=== PATIENT | male | born 1965 | race Caucasian/White ===

== ENCOUNTER 2016-10-22 17:01 | Inpatient (IN) | payer OTHER ==
[~2016-10-22] VITALS: Ht 182.9 cm; Wt 95.9 kg
--- NOTE | 2016-10-22 17:16 | NUR ---
RECEIVED 50 YO MALE WITH HX OF OCD, PT REPORTS HE IS HAVING THOUGHTS OF S.I. PT REPORTS HE IS AT THE POINT WHERE HE IS THINKING OF MAKING PLANS JUST IN CASE IT GETS REAL BAD.
--- NOTE | 2016-10-22 17:25 | NUR ---
PT BOUGHT DIRECTLY TO ROOM # 15 FOR EVAL AND TREATMENT.
--- NOTE | 2016-10-22 17:29 | ED PSYCHIATRIC COMPLAINT ---
History of Present Illness General Chief Complaint: Psychiatric Related Complaint Stated Complaint: "I HAVE OCD AND A LOT OF MEDS, HAVING SI THOUGHTS" Source: patient, family Exam Limitations: no limitations Vital Signs & Intake/Output Vital Signs & Intake/Output Vital Signs Date Time Temp Pulse Resp B/P Pulse O2 O2 Flow FiO2 Ox Delivery Rate 10/23 1332 98.4 82 16 124/88 100 Room Air 10/23 0936 96.8 85 16 126/90 97 Room Air 10/23 0635 97.1 93 18 123/84 97 Room Air 10/22 2204 97.2 90 19 132/70 95 Room Air 10/22 1941 97.0 89 19 136/78 97 Room Air 10/22 1750 Room Air 10/22 1714 97.3 95 18 149/91 96 Room Air ED Intake and Output 10/23 0000 10/22 1200 Intake Total Output Total Balance Patient 220 lb Weight Allergies Coded Allergies: No Known Allergies (10/22/16) Reconcile Medications Alprazolam 0.5 MG TABLET 1 TAB PO Q4-6H PRN ANXIETY (Reported) Atenolol 50 MG TABLET 1 TAB PO DAILY HEART/BP (Reported) Buspirone HCl 30 MG TABLET 1 TAB PO TID MENTAL HEALTH (Reported) Fluvoxamine Maleate 100 MG TABLET 2 TAB PO BID MENTAL HEALTH (Reported) Lamotrigine 100 MG TABLET 1 TAB PO TID MENTAL HEALTH (Reported) Paroxetine HCl 40 MG TABLET 1 TAB PO TID MENTAL HEALTH (Reported) Primidone 50 MG TABLET 1 TAB PO TID MENTAL HEALTH (Reported) Rivaroxaban (Xarelto) 15 MG TABLET 1 TAB PO BID BLOOD THINNER (Reported) Thyroid,Pork ([place] Thyroid) 60 MG TABLET 1 TAB PO DAILY THYROID (Reported) Triage Note: RECEIVED 50 YO MALE WITH HX OF OCD, PT REPORTS HE IS HAVING THOUGHTS OF S.I. PT REPORTS HE IS AT THE POINT WHERE HE IS THINKING OF MAKING PLANS JUST IN CASE IT GETS REAL BAD. Triage Nurses Notes Reviewed? yes HPI: 50-year-old male brought in by friend to room 15 for evaluation of suicidal ideation with a plan. Patient has a long history of OCD with previous suicidal attempts. In April 2016 while he was living in [place] he put a plastic bag over his head and also overdosed on Seroquel. He has a psychiatrist in [place] Dr. Lr who has been managing his medications and doing consultations over the telephone and visits every couple months. Leonard recently had 3 medications increased in their dosage and he feels ever since then he has been getting more suicidal thoughts. He does report that his plan is to get in his car and get a hose/carbon monoxide poisoning. He also thought about the bad over his head and taking pills to overdose. He denies any physical complaints. Denies chest pain , shortness of breath, lightheadedness, dizziness or palpitations. Paxil dose was increased from 40 mg twice a day to 3 times a day. Luvox 150 mg 2 tablets 2 twice a day is now 200 mg twice a day and BuSpar increased from 30 mg twice a day to 3 times a day. Leonard also has a history of right upper extremity DVT. He has been on Xarelto for 6 months and received a telephone call today that the ultrasound of his right upper extremity is negative and he could stop Xarelto. (GEMMA POMPA APRN) Past History Travel History Traveled to [place] past 21 day No Medical History Any Pertinent Medical History? see below for history Neurological: NONE EENT: NONE Cardiovascular: DVT RUE Respiratory: NONE Gastrointestinal: NONE Hepatic: NONE Renal: NONE Musculoskeletal: NONE Psychiatric: depression, OCD Endocrine: NONE Blood Disorders: NONE Cancer(s): NONE Surgical History Surgical History: non-contributory Psychosocial History What is your primary language Telugu Tobacco Use: Never used ETOH Use: denies use Illicit Drug Use: denies illicit drug use Family History Hx Contributory? No (GEMMA POMPA APRN) Review of Systems Review of Systems Constitutional: Reports: see HPI. EENTM: Reports: no symptoms. Respiratory: Reports: no symptoms. Cardiovascular: Reports: no symptoms. GI: Reports: no symptoms. Genitourinary: Reports: no symptoms. Musculoskeletal: Reports: no symptoms. Skin: Reports: no symptoms. Neurological/Psychological: Reports: no symptoms. Hematologic/Endocrine: Reports: no symptoms. Immunologic/Allergic: Reports: no symptoms. All Other Systems: Reviewed and Negative (GEMMA POMPA APRN) Physical Exam Physical Exam General Appearance: well developed/nourished, mild distress Head: atraumatic Eyes: Bilateral: PERRL, EOMI. Ears, Nose, Throat: normal pharynx, normal ENT inspection, hearing grossly normal Neck: normal inspection, supple Respiratory: normal breath sounds Cardiovascular: regular rate/rhythm Gastrointestinal: soft, non-tender Extremities: normal range of motion Neurological/Psychiatric: no motor/sensory deficits, awake, alert, normal mood/ affect, calm Appearance/Memory/Insight: appropriate appearance Behavoir/Eye Contact/Speech: cooperative, normal speech, good eye contact Thoughts/Hallucinations: normal thought pattern, no apparent hallucination Skin: intact, normal color, warm/dry SAD PERSONS SAD PERSONS Response Value Male Sex? yes 1 Age <19 or >45 years? yes 1 Depression/Hopelessness? yes 2 Rational Thinking Loss? yes 2 Single//? yes 1 Social Support? has support 0 Stated Future Intent? yes 2 Total 9 SAD PERSONS Done? yes (GEMMA POMPA APRN) Progress Differential Diagnosis: electrolyte abnormality, SUICIDAL IDEATION WITH A PLAN Plan of Care: Orders Procedure Date/time Status Regular Diet 10/23 B Active Continuous Observation Monitor 10/22 174 Active ED CRISIS PSYCH CONSULT 10/22 174 Active URINE DRUG SCREEN FOR ER ONLY 10/22 1725 Complete ETHANOL 10/22 172 Complete COMPREHENSIVE METABOLIC PANEL 10/22 1725 Complete CBC WITHOUT DIFFERENTIAL 10/22 172 Complete Current Medications Sig/Uday Start time Last Medication Dose Stop Time Status Admin Rivaroxaban 15 MG BID 10/23 1055 UNVr (Xarelto) Laboratory Tests 10/22/16 172: Serum Alcohol < 10.0 10/22/16 172: Anion Gap 12, Estimated GFR 59 L, BUN/Creatinine Ratio 15.4, Glucose 77, Calcium 9.8, Total Bilirubin 0.6, AST 30, ALT 46, Alkaline Phosphatase 68, Total Protein 7.6, Albumin 4.4, Globulin 3.2, Albumin/Globulin Ratio 1.4, CBC w Diff NO MAN DIFF REQ, RBC 5.12, MCV 87.1, MCH 28.6, RDW 13.5, MPV 9.3, Gran % 60.6, Lymphocytes % 28.9, Monocytes % 8.6, Eosinophils % 1.4, Basophils % 0.5, Absolute Granulocytes 4.4, Absolute Lymphocytes 2.1, Absolute Monocytes 0.6, Absolute Eosinophils 0.1, Absolute Basophils 0, PUBS MCHC 32.8 L, Urine Opiates Screen < 100.00, Methadone Screen 52, Barbiturate Screen 253 H, Ur Phencyclidine Scrn < 6.00, Amphetamines Screen < 100, U Benzodiazepines Scrn 500 H, Urine Cocaine Screen < 50, Urine Cannabis Screen < 5.00 Hand-Off Endorsed To: SAMMI KIMBALL MD Endorsed Time: 2117 Pending: other (crisis re-eval) Comments: Patient will be given his evening time medications along with Ativan 0.5 mg 1 and stay overnight in the emergency department. He will be reassessed by crisis and psychiatrist in the morning to see if he should be admitted. Case discussed with Dr. Kimball and signed out to him at 2117. (GEMMA POMPA APRN) Hand-Off Endorsed To: COLLETTE MARTÍNEZ MD Endorsed Time: 07 Pending: consult (re-eval in AM) (SAMMI KIMBALL MD) Departure Departure Time of Disposition: 2118 Disposition: STILL A PATIENT Condition: Stable Departure Forms: Customer Survey General Discharge Information (GEMMA POMPA APRN) PA/BRICK GRADER Co-Sign Statement Statement: ED Attending supervision documentation- x I saw and evaluated the patient. I have also reviewed all the pertinent lab results and diagnostic results. I agree with the findings and the plan of care as documented in the PA's/BRICK GRADER's documentation. [] I have reviewed the ED Record and agree with the PA's/BRICK GRADER's documentation. [] Additions or exceptions (if any) to the PAs/BRICK GRADER's note and plan are summarized below: [] (SAMMI KIMBALL MD) Departure Clinical Impression Primary Impression: Major depress dis, severe Secondary Impressions: OCD (obsessive compulsive disorder), Suicidal ideation Psych Admission Note Psychiatric Admission: I have seen and evaluated LEONARD OLMEDO. I have also reviewed all the pertinent lab results and diagnostic results. LEONARD OLMEDO will be admitted to our inpatient Psychiatric unit for treatment and care. PA/BRICK GRADER Co-Sign Statement Statement: ED Attending supervision documentation- [X] I saw and evaluated the patient. I have also reviewed all the pertinent lab results and diagnostic results. I agree with the findings and the plan of care as documented in the PA's/BRICK GRADER's documentation. [X] I have reviewed the ED Record and agree with the PA's/BRICK GRADER's documentation. [] Additions or exceptions (if any) to the PAs/BRICK GRADER's note and plan are summarized below: [] (MAURICIO LEVIN,COLLETTE Montenegro)
--- NOTE | 2016-10-22 17:30 | NUR ---
BLOOD DRAWN AND SENT TO LAB GOLD BLUE PINK MANN LAV TUBES COLLECTED URINE COLLECTED WELL TRIO TUBE SET SENT
--- NOTE | 2016-10-22 17:31 | NUR ---
PT AMBULATORY TO ROOM 15. PT REPORTS LONG HISTORY OF DEPRESSION AND OCD. PT PROVIDED MED LIST (IN CHART) AND STATES THAT THREE OF HIS MEDICATIONS HAVE BEEN INCREASED RECENTLY WITH NO RELIEF. PT APPEARS CALM AND COOPERATIVE, WITH FEMALE KEN IN ATTENDANCE. THIS FEMALE FRIEND WILL TAKE PT'S VALUABLES WITH HER. PT STATES THAT HE LIVES BETWEEN HIS PARENT'S HOUSE AND THIS FRIEND MICHAEL'S HOUSE. PT STATES HE HAS BEEN THINKING OF PLANS FOR SUICIDE THAT INCLUDE OVERDOSING IN A HOTEL WITH A BAG OVER HIS HEAD OR CARBON MONOXIDE POISONING. PT REPORTS DECREASED APPETITE OVER LAST MONTH. MARI POMPA AT BEDSIDE
--- NOTE | 2016-10-22 17:46 | NUR ---
PT CHANGING INTO PAPER SCRUBS, SECURITY WAS CALLED TO CPS AND WAS UNABLE TO DO WANDING AT THIS TIME., 2 BELONGIMGS BAGS LOCKED IN CLOSET. SECURITY SHOWED UP AND PT HAS BEEN WANDED. ALL VALUABLES AND MEDS TAKEN BY FEMALE FRIEND
[2016-10-22 17:55] LABS: ABSOLUTE BASOPHIL COUNT 0 /CUMM (0.0-0.2); ABSOLUTE EOSINOPHIL COUNT 0.1 /CUMM (0.0-0.7); ABSOLUTE GRANULOCYTE CT 4.4 /CUMM (1.4-6.5); ABSOLUTE LYMPH COUNT 2.1 /CUMM (1.2-3.4); ABSOLUTE MONOCYTE COUNT 0.6 /CUMM (0.10-0.60); BASOPHIL % 0.5 % (0.0-2.0); EOSINOPHIL % 1.4 % (0-5); GRANULOCYTE % 60.6 % (42.2-75.2); HEMATOCRIT 44.6 % (42-52); MEAN CORPUSCULAR HGB 28.6 PG (27.0-31.0); MEAN CORPUSCULAR HGB CONC 32.8 G/DL (33.0-37.0); MEAN CORPUSCULAR VOLUME 87.1 FL (80.0-94.0); MEAN PLATELET VOLUME 9.3 FL (7.4-10.4); PLATELET COUNT 217 /CUMM (130-400); RBC DISTRIBUTION WIDTH 13.5 % (11.5-14.5); RED BLOOD CELL CT 5.12 /CUMM (4.70-6.10); WHITE BLOOD CELL COUNT 7.3 /CUMM (4.8-10.8)
--- NOTE | 2016-10-22 17:57 | NUR ---
THIS RN CALLED DIETARY TO ORDER PT H[place]BUR[place] W/KETSUP
--- NOTE | 2016-10-22 18:06 | NUR ---
DINNER TRAY PROVIDED TO PT AT THIS TIME.
--- NOTE | 2016-10-22 19:01 | NUR ---
CRISIS IN WITH PT AT THIS TIME
[2016-10-22] MEDS ORDERED: PAROXETINE HCL40 M1 PO (19:25)
[2016-10-22] MEDS ORDERED: FLUVOXAMINE MA100 M2 PO (19:25)
[2016-10-22] MEDS ORDERED: BUSPIRONE HCL30 M1 PO (19:26)
[2016-10-22] MEDS ORDERED: PRIMIDONE50 M1 PO (19:26)
[2016-10-22] MEDS ORDERED: ARMOUR THYROID60 M1 PO (19:27)
[2016-10-22] MEDS ORDERED: ALPRAZOLAM0.5 M4 PO (19:27)
[2016-10-22] MEDS ORDERED: LAMOTRIGINE100 M2 PO (19:27)
[2016-10-22] MEDS ORDERED: ATENOLOL50 M1 PO (19:28)
[2016-10-22] MEDS ORDERED: XARELTO15 M2 PO (19:28)
--- NOTE | 2016-10-22 21:52 | NUR ---
PT MEDICATED WITH [facility] MEDS - ATIVAN, LAMICTAL, PAXIL, BUSPAR, PRIMIDINE AND LUVOX. PT CALM AND COOPERATIVE. PT AMBULATORY TO TELEPHONE IN AREA. PT STATED "I DON'T THINK I WILL SLEEP TONIGHT, BUT I WILL LIE HERE QUIETLY". SITTER AT DOOR FOR SAFETY.
--- NOTE | 2016-10-22 22:47 | NUR ---
ASSUMED CARE OF PT PER ARTHUR DE LA TORRE. PT SLEEPING WITH RR, WILL CONTINUE TO MONITOR
--- NOTE | 2016-10-22 22:54 | ED PSYCH CRISIS CONSULTATION ---
See Addendum Crisis Consult Basic Assessment Date of Consult: 10/22/16 Responsible Person/Accompanied By: friend (Luis Antonio) [phone] Insurance Authorization: Insurance #1: Insurance name: [employer] Phone number: Policy number: [id number] Group number: Authorization number: n/a ED Provider: Patient's ED Provider: GEMMA POMPA APRN Primary Care Physician: Patient's PCP: PATIENT HAS NO PRIMARY CARE DR PCP's Phone Number: Current Psychiatrist: Mandeep Spaulding MD Chief Complaint: Psychiatric Related Complaint Patient's Quote: "I'm scared" Present Illness: Pt is a 50 year old male with a history of depression, anxiety and OCD for the past 25 years. For the past several years, pt has been having his psychiatric medications (Paxil, Luvox, Buspar, Primidone, Lamotrigine and Xanax) prescribed by a Dr. Amin in [place] (Pt used to live there) and reports that he had been relatively stable until he travelled to [place] about eight months ago. Pt reports that while he was there, people were coming up to him and asking him if he was following them and trying to arrest them. At that point Pt called Dr. Amin and told him about these incidents and Dr. Amin put him on Seroquel. Pt reports that he then travelled to [place] and saw the same people who had accused him of following them in [place]. Pt. reports that while in his hotel room in [place] one night, he put a plastic bag over his head "just to see what it felt like", but then took it off. However, 3 days later he overdosed with his bottle of Seroquel and was admitted to the hospital in [place]. Pt. reports that while he was in the hospital, they took him off all of his medications except for Paxil and started him on Risperdal. Pt. reports that after he was discharged from the hospital, he came back to [place] - where he lives with his parents - in June, and since then has been living part-time in [place] and part-time in [place] with his friend Luis Antonio (who accompanied him to the ED today). Luis Antonio reports that Pt. seemed different when he came back from [place] and said that he was "very stressed" and could not even carry on a conversation. Pt reports that about 5 weeks ago, he called Dr. Amin and asked to be put back on his previous regimen of medication. Pt. reports that last week he called Dr. Amin gain and told him that he was still feeling stressed and that Dr. Amin increased pts Paxil, Luvox and Busbar. Pt reports that two nights ago, he started thinking about suicide and what he would do if his life got "worse" financially. Pt's friend Luis Antonio explained later that pt is obsessively worried that the [employer] is going to stop his 100% disability. Pt. reports that that night, he started going through "plans" of how he would do it and thought of either putting a plastic bag over his head or hooking up a hose from the tailpipe of his car to the inside of the car and poisoning himself with carbon dioxide. Pt. reports that he told both his friend Luis Antonio and Dr. Amin about these thoughts today and they convinced him to come to the ED. Pt reports that he is scared . Patient's Address: [address] [place] [address]. [place] [address] Other Phone Number: Who Do You Live With? Patient and family (stays w/friend in [place] p/t) Family/Informants Interviewed: friend Luis Antonio Hartman ([phone]) Allergies - Coded Allergies: No Known Allergies (10/22/16) Current Medications - Scheduled Medications Atenolol 50 MG TABLET 1 TAB PO DAILY HEART/BP #30 (Reported) Entered as Reported by REINALDO ORTIZ on 10/22/161927 Buspirone HCl 30 MG TABLET 1 TAB PO TID MENTAL HEALTH #90 (Reported) Entered as Reported by REINALDO ORTIZ on 10/22/16 192 Fluvoxamine Maleate 100 MG TABLET 2 TAB PO BID MENTAL HEALTH #90 (Reported) Entered as Reported by REINALDO ORTIZ on 10/22/16 192 Lamotrigine 100 MG TABLET 1 TAB PO TID MENTAL HEALTH #90 (Reported) Entered as Reported by REINALDO ORTIZ on 10/22/16 192 Paroxetine HCl 40 MG TABLET 1 TAB PO TID MENTAL HEALTH #60 (Reported) Entered as Reported by REINALDO ORTIZ on 10/22/161924 Primidone 50 MG TABLET 1 TAB PO TID MENTAL HEALTH #90 (Reported) Entered as Reported by REINALDO ORTIZ on 10/22/161925 Rivaroxaban (Xarelto) 15 MG TABLET 1 TAB PO BID BLOOD THINNER #180 (Reported) Entered as Reported by REINALDO ORTIZ on 10/22/161927 Thyroid,Pork ([place] Thyroid) 60 MG TABLET 1 TAB PO DAILY THYROID #60 ( Reported) Entered as Reported by REINALDO ORTIZ on 10/22/161926 Scheduled PRN Medications Alprazolam 0.5 MG TABLET 1 TAB PO Q4-6H PRN ANXIETY #90 (Reported) Entered as Reported by REINALDO ORTIZ on 10/22/161926 Laboratory Results: Laboratory Tests 10/22/16 172: Serum Alcohol < 10.0 10/22/16 1728: Anion Gap 12, Estimated GFR 59 L, BUN/Creatinine Ratio 15.4, Glucose 77, Calcium 9.8, Total Bilirubin 0.6, AST 30, ALT 46, Alkaline Phosphatase 68, Total Protein 7.6, Albumin 4.4, Globulin 3.2, Albumin/Globulin Ratio 1.4, CBC w Diff NO MAN DIFF REQ, RBC 5.12, MCV 87.1, MCH 28.6, RDW 13.5, MPV 9.3, Gran % 60.6, Lymphocytes % 28.9, Monocytes % 8.6, Eosinophils % 1.4, Basophils % 0.5, Absolute Granulocytes 4.4, Absolute Lymphocytes 2.1, Absolute Monocytes 0.6, Absolute Eosinophils 0.1, Absolute Basophils 0, PUBS MCHC 32.8 L, Urine Opiates Screen < 100.00, Methadone Screen 52, Barbiturate Screen 253 H, Ur Phencyclidine Scrn < 6.00, Amphetamines Screen < 100, U Benzodiazepines Scrn 500 H, Urine Cocaine Screen < 50, Urine Cannabis Screen < 5.00 Past History Past Medical History Neurological: NONE EENT: NONE Cardiovascular: NONE Respiratory: NONE Gastrointestinal: NONE Hepatic: NONE Renal: NONE Musculoskeletal: NONE Psychiatric: depression, OCD Endocrine: NONE Blood Disorders: NONE Cancer(s): NONE Past Surgical History Surgical History: non-contributory Psychosocial History Strengths/Capabilities: good supports, past hx of employment, in current tx, wants help Physical Limitations (Interventions): none known Psychiatric Treatment History Psych Treatment Psychiatric Treatment Yes Inpatient Treatment Yes (3x's) Outpatient Treatment Yes Location of Treatment OP- Dr. Amin - in [place]; IP- [facility] Reason for Treatment Depression, SI, suicide attempt (6 mos ago) Dates of Treatment OP- current; IP - once 6 mos ago, once4 or 5 yrs ago, once 10 yrs ago. Response to Treatment unk Diagnosis by History: Depression, OCD Substance Use/Abuse History Drug Use/Abuse Substances Used/Abused Yes Substance Used/Abused Alcohol First Use unk Last Used two nights ago How much used/taken two beers How often on occasion For how long unk Route of use oral Substance Abuse Treatment Substance Abuse Treatment Past Substance Abuse [place] No Comments: n/a Current Mental Status Mental Status Orientation: Person, Place, Situation Affect: Anxious Speech: WNL Neuro-vegetative: Anhedonia, Helpless, Sleep Disturbance Appearance Appearance- Dress/Hygiene: WNL Behaviors Thought Process: WNL Thought Content: WNL Memory: WNL Insight: Fair SI/HI Risk Assessment Past Suicidal Ideation/Attempts Yes (3 past attempts) Current Suicidal Ideation/Att Yes (has plan "if life gets worse") Past Homicidal Ideation/Att: No Current Homicidal Ideation/Attempts No Degree of Intent: Plan (Has plans if "life gets worse"), Thoughts/No Intent Danger To: Self Gravely Disabled: none Risk Factors: high anxiety/distress, history of suicide atmpts, SA/MH hospitalized, male Lethality Ratin PTSD Checklist PTSD Done? patient declined ED Management Sitter: Yes Restraints: No DSM5/PS Stressors/Medical Prob Diagnosis' (DSM 5, Stressors, Medical): F33.2 - MDD, recc, severe; F41.1 - RUPERTO; F42 - OCD. Stressors - on disability. Medical - HTN, thyroid Current GAF: 30 Comments: Having extreme difficulty functioning, SI with plans, obsessive thoughts. Departure Disposition Psych Medical Clearance Date: 10/22/16 Medically Cleared at: 1900 Time Started: 1899 Time Ended: 1944 Psychiatrist Consulted: Jasson LEVIN,Edward Date Disposition Established: 10/22/16 Time Disposition Established: 1944 Plan for Disposition - Modality: h/o in ED for re-eval in AM Facility: [facility] Contact: n/a Telephone: n/a Rationale for Disposition: Pt. reported suicidal thoughts with a plan if his life gets worse, however pt. is very anxious and confused as to whether or not he wants to be admitted. Pt will be h/o in ED so that he may be re-evaluated in the morning and so more collateral can be gathered in the AM. Additional Instructions: Pt will be given his nightime doses of his medicationsm here in the ED. Referrals PATIENT HAS NO PRIMARY CARE DR (PCP/Family)
--- NOTE | 2016-10-23 00:31 | NUR ---
PT SLEEPING WITH RR, WILL CONTINUE TO MONITOR. SITTER IN PLACE
--- NOTE | 2016-10-23 03:03 | NUR ---
PT SLEEPING WITH RR, WILL CONTINUE TO MONITOR
--- NOTE | 2016-10-23 03:50 | NUR ---
PT SLEEPING, TOSSING AND TURNING, SNORING, BILATERAL CHEST RISE FALL NOTED. WILL CONTINUE TO MONITOR, SITTER IN PLACE
--- NOTE | 2016-10-23 05:21 | NUR ---
PT SLEEPING WITH RR, SLEEPING ON RIGHT SIDE, BILATERAL CHEST RISE AND FALL NOTED, SNORING. SITTER IN PLACE WILL CONTINUE TO MONITOR
--- NOTE | 2016-10-23 06:49 | NUR ---
PT SLEEPING WITH RR, VSS, PT INFORMED BREAKFAST IS ON ITS WAY.
--- NOTE | 2016-10-23 07:30 | NUR ---
ASSUMED CARE, PT SLEEPING, SITTER IN ATTENDANCE.
--- NOTE | 2016-10-23 10:18 | ED PSY CRISIS COLLATERAL NOTE ---
See Addendum Collateral Note Collateral Note Family/Inform/Tamika Contacts: pt. reported to claim clinician that his Doctor's contact info is "Dr. Amin " [phone].
--- NOTE | 2016-10-23 11:05 | NUR ---
REQUESTING MEDICATION
--- NOTE | 2016-10-23 11:15 | NUR ---
ASSUMED CARE OF THIS PT FROM ARTHUR SMALL. PT ALERT AND ORIENTED. CALM AND COOPERATIVE. SITTER AT DOOR FOR SAFETY.
--- NOTE | 2016-10-23 11:30 | ED PSY CRISIS COLLATERAL NOTE ---
Collateral Note Collateral Note Family/Inform/Atmika Contacts: 10/23/16: clinician spoke with Luis Antonio Hartman (pt. reported they dated a couple years ago and now they are best friends) who gave this clinician information that corresponded with info provided in Consult written by Hiwot Gill on 10/[address] Amin and medication and treatment history. She reported that his symptoms had increased when he moved to [place] and believed people were following him accusing him of being a drug dealer and thinking he was going to arrest them. He then believed that the same people followed him to [place] where he had also stayed for a time. He was hospitalized while in [place], they changed his medications to Risperdal, he experienced side effects from the medications and started his old medication regimen when he returned to [place] and [place] and spoke to his DrAlee from the [facility] over the phone. Luis Antonio reported that "Omkar" wasn't the same when he returned from [place], his symptoms had improved but "he was blank, couldn't carry on in-depth conversations and was clenching his teeth in anxiety". She reported Omkar/pt. has not seen Dr. Amin (his [facility] dr[facility] [place]) for "over 8 years" and he consults with him over the phone and Skype. Luis Antonio reported that the pt. has had an OCD diagnosis for at least 20 years. She stated that she is concerned for his safety because he has had increasing SI thoughts and the last time he had increased SI thoughts and told family not to worry, he attempted suicide by overdosing on Seroquel. This incident occurred a few months ago and as a result he was hospitlized in [place].
--- NOTE | 2016-10-23 11:59 | NUR ---
PT MEDICATED PER EMAR. PT CALM AND COOPERATIVE. PT WAS VISITED BY THERAPY DOG "HOLLIS". SITTER AT DOOR FOR SAFETY.
--- NOTE | 2016-10-23 12:45 | NUR ---
PT AWAKE AND ALERT, CALM AND COOPERATIVE. PT WATCHING TV. SITTER AT DOOR.
--- NOTE | 2016-10-23 13:44 | IP CRISIS DIAG ASSESS PSYCH ---
See Addendum Diagnostic Assessment Basic Assessment Insurance Authorization: Insurance #1: Insurance name: [employer] Phone number: Policy number: [id number] Group number: Authorization number: Primary Care Physician: Patient's PCP: PATIENT HAS NO PRIMARY CARE DR PCP's Phone Number: Patient's Quote: "I'm scared" Present Illness: Pt is a 50 year old male with a history of depression, anxiety and OCD for the past 25 years. For the past several years, pt has been having his psychiatric medications (Paxil, Luvox, Buspar, Primidone, Lamotrigine and Xanax) prescribed by a Dr. Amin in [place] (Pt used to live there) and reports that he had been relatively stable until he travelled to [place] about eight months ago. Pt reports that while he was there, people were coming up to him and asking him if he was following them and trying to arrest them. At that point Pt called Dr. Amin and told him about these incidents and Dr. Amin put him on Seroquel. Pt reports that he then travelled to [place] and saw the same people who had accused him of following them in [place]. Pt. reports that while in his hotel room in [place] one night, he put a plastic bag over his head "just to see what it felt like", but then took it off. However, 3 days later he overdosed with his bottle of Seroquel and was admitted to the hospital in [place]. Pt. reports that while he was in the hospital, they took him off all of his medications except for Paxil and started him on Risperdal. Pt. reports that after he was discharged from the hospital, he came back to [place] - where he lives with his parents - in June, and since then has been living part-time in [place] and part-time in [place] with his friend Luis Antonio (who accompanied him to the ED today). Luis Antonio reports that Pt. seemed different when he came back from [place] and said that he was "very stressed" and could not even carry on a conversation. Pt reports that about 5 weeks ago, he called Dr. Amin and asked to be put back on his previous regimen of medication. Pt. reports that last week he called Dr. Amin gain and told him that he was still feeling stressed and that Dr. Amin increased pts Paxil, Luvox and Busbar. Pt reports that two nights ago, he started thinking about suicide and what he would do if his life got "worse" financially. Pt's friend Luis Antonio explained later that pt is obsessively worried that the [facility] is going to stop his 100% disability. Pt. reports that that night, he started going through "plans" of how he would do it and thought of either putting a plastic bag over his head or hooking up a hose from the tailpipe of his car to the inside of the car and poisoning himself with carbon dioxide. Pt. reports that he told both his friend Luis Antonio and Dr. Amin about these thoughts today and they convinced him to come to the ED. Pt reports that he is scared . pt. was re-assessed on 10/23. He was very focused on his medications and several worries related to them including: his medications costing him alot of money while he was in the ED so maybe the meds should be held so he would not have to pay AND the worry that he would not get his meds and he needed his meds. Pt. reported he had been having suicidal ideation while going to bed at night but he reported this had been happening on and off for 20 years. He stated he felt he would not act on the thoughts because he had not taken any action thus far with the ideation and in the past he had made gestures such as putting a plastic bag over his head. He reported this time he was having thoughts of going to the garage and putting a hose in the exhaust of the car and also going to a hotel room and putting a bag over his head there. He reported he felt his increased suicidal thoughts were due to his recent med change within the last 5-6 weeks and his increase in Paxil, an SSRI with the possible side effects of increased suicidal ideation. He stated he felt all the suicidal ideation he had expereinced over the last 20 years was due to being on an SSRI, but he stated he wanted to remain on these meds because "otherwise he would be drooling in some hospital somewhere" because his OCD symptoms were so bad". If sent home, he reported he would "hang out with Luis Antonio and her dog" and go back to [place] to stay with his parents once he got an appointment at the [place] [facility]. He stated they had called him with an available appointment last week and he called them back and left a message. He stated he hoped that by Monday he would receive a call back from them and would have an appointment this week. Patient's Address: [address] [place] [address]. [place] [address] Other Phone Number: Who Do You Live With? Patient and family (stays w/friend in [place] p/t) Feel Safe Where You Live? Yes Feel Safe in Your Relationship Yes Marital Status: ( 5y ago from 9y marria) Do You Have Children? No Primary Language? Citizen Of [place] Language(s) Spoken At Home: Citizen Of [place] Family/Informants Interviewed: friend Luis Antonio Hartman ([phone]) Allergies - Coded Allergies: No Known Allergies (10/22/16) Current Medications - Scheduled Medications Atenolol 50 MG TABLET 1 TAB PO DAILY HEART/BP #30 (Reported) Entered as Reported by REINALDO ORTIZ on 10/22/161927 Buspirone HCl 30 MG TABLET 1 TAB PO TID MENTAL HEALTH #90 (Reported) Entered as Reported by REINALDO ORTIZ on 10/22/161925 Fluvoxamine Maleate 100 MG TABLET 2 TAB PO BID MENTAL HEALTH #90 (Reported) Entered as Reported by REINALDO ORTIZ on 10/22/161924 Lamotrigine 100 MG TABLET 1 TAB PO TID MENTAL HEALTH #90 (Reported) Entered as Reported by REINALDO ORTIZ on 10/22/161926 Paroxetine HCl 40 MG TABLET 1 TAB PO TID MENTAL HEALTH #60 (Reported) Entered as Reported by REINALDO ORTIZ on 10/22/161924 Primidone 50 MG TABLET 1 TAB PO TID MENTAL HEALTH #90 (Reported) Entered as Reported by REINALDO ORTIZ on 10/22/161925 Rivaroxaban (Xarelto) 15 MG TABLET 1 TAB PO BID BLOOD THINNER #180 (Reported) Entered as Reported by REINALDO ORTIZ on 10/22/161927 Thyroid,Pork ([place] Thyroid) 60 MG TABLET 1 TAB PO DAILY THYROID #60 ( Reported) Entered as Reported by REINALDO ORTIZ on 10/22/161926 Scheduled PRN Medications Alprazolam 0.5 MG TABLET 1 TAB PO Q4-6H PRN ANXIETY #90 (Reported) Entered as Reported by REINALDO ORTIZ on 10/22/161926 Consequences of Psych Med Use: Very focused on psych meds and "having the right combination". Lab Results: Laboratory Tests 10/22/161727: Serum Alcohol < 10.0 10/22/161727: Anion Gap 12, Estimated GFR 59 L, BUN/Creatinine Ratio 15.4, Glucose 77, Calcium 9.8, Total Bilirubin 0.6, AST 30, ALT 46, Alkaline Phosphatase 68, Total Protein 7.6, Albumin 4.4, Globulin 3.2, Albumin/Globulin Ratio 1.4, CBC w Diff NO MAN DIFF REQ, RBC 5.12, MCV 87.1, MCH 28.6, RDW 13.5, MPV 9.3, Gran % 60.6, Lymphocytes % 28.9, Monocytes % 8.6, Eosinophils % 1.4, Basophils % 0.5, Absolute Granulocytes 4.4, Absolute Lymphocytes 2.1, Absolute Monocytes 0.6, Absolute Eosinophils 0.1, Absolute Basophils 0, PUBS MCHC 32.8 L, Urine Opiates Screen < 100.00, Methadone Screen 52, Barbiturate Screen 253 H, Ur Phencyclidine Scrn < 6.00, Amphetamines Screen < 100, U Benzodiazepines Scrn 500 H, Urine Cocaine Screen < 50, Urine Cannabis Screen < 5.00 Toxicology Screen Completed? Yes Past History Abuse/Trauma History Trauma History/Current Trauma: Denies Legal History Current Legal Status: none Have you ever been arrested? No Number of Arrests: 0 Psychosocial History Strengths/Capabilities: good supports, past hx of employment, in current tx, wants help Physical Limitations (Interventions): none known Psychiatric Treatment History Psych Treatment Psychiatric Treatment Yes Inpatient Treatment Yes (3x's) Outpatient Treatment Yes Location of Treatment OP- Dr. Amin - in [place]; IP- [facility] Reason for Treatment Depression, SI, suicide attempt (6 mos ago) Dates of Treatment OP- current; IP - once 6 mos ago, once4 or 5 yrs ago, once 10 yrs ago. Response to Treatment unk Diagnosis by History: Depression, OCD Risk Factors: high anxiety/distress, history of suicide atmpts, SA/MH hospitalized, male Substance Use/Abuse History Drug Use/Abuse minimum 12mo Hx Substances Used/Abused Yes Substance Used/Abused Alcohol First Use unk Last Used two nights ago How much used/taken two beers How often on occasion For how long unk Route of use oral Substance Abuse Treatment Substance Abuse Treatment Past Substance Abuse TX No Sexual History Sexually Active No Sexual Orientation Heterosexual Use of Protection Yes Sometimes Education History Highest Level of Education: bachelor's degree Preferred Learning Style: auditory Current Mental Status Mental Status Orientation: Person, Place, Situation Affect: Anxious Speech: WNL Neuro-vegetative: Anhedonia, Helpless, Sleep Disturbance Appearance Appearance- Dress/Hygiene: WNL Behaviors Thought Process: WNL Thought Content: WNL Memory: WNL Insight: Fair SI/HI Risk Assessment - Minimum 6mo History- Past Suicidal Ideation/Attempts Yes (3 past attempts) Current Suicidal Ideation/Att Yes (has plan "if life gets worse") Past Homicidal Ideation/Att: No Current Homicidal Ideation/Attempts No Degree of Intent: Plan (Has plans if "life gets worse"), Thoughts/No Intent Danger To: Self Gravely Disabled: none Risk Factors: high anxiety/distress, history of suicide atmpts, SA/MH hospitalized, male Lethality Ratin Needs/Init TX Plan/Goals: acclimate to the inpatient unit meet with clinician and psychiatrist attend groups on the unit. AUDIT-C Questionnaire: AUDIT-C Questionnaire: Response Value ETOH use in the past year 2-4 times/week 3 # drinks typical/day 1 or 2 0 6 or > drinks per occasion Less than monthly 1 Total 4 DSM5/PS Stressors/Medical Prob Diagnosis' (DSM 5, Stressors, Medical): F33.2 - MDD, recc, severe; F41.1 - RUPERTO; F42 - OCD. Stressors - on disability. Medical - HTN, thyroid Current GAF: 30 Comments: Having extreme difficulty functioning, SI with plans, obsessive thoughts.
--- NOTE | 2016-10-23 13:53 | ED PSY CRISIS COLLATERAL NOTE ---
Collateral Note Collateral Note Family/Inform/Tamika Contacts: Called pt's parents, who he lives with part-time at [phone] and left a message at both 12 noon and at 1 pm. No return call from them as of 2:00 pm
--- NOTE | 2016-10-23 14:30 | NUR ---
PT WATCHING TV IN ROOM 15. PT CALM AND COOPERATIVE. SITTER AT DOOR FOR SAFETY.
--- NOTE | 2016-10-23 16:22 | NUR ---
PT MEDICATED WITH BUSPAR, LAMICTAL AND PRIMIDONE, PER EMAR. PT AWAITING TRANSFER DOWN TO CPS
[2016-10-23 17:13] VITALS: BP 156/98
[2016-10-23 19:57] VITALS: BP 120/87
--- NOTE | 2016-10-23 20:46 | NUR ---
PT. ADMITTD T0 [facility] ALERT AND ORIENTED VSS APPROPRIATE INTERVIEW OBTAINED PT. ORIENTED TO SURROUNDINGS VERY PLEASANT COOPERATIVE WITH CARE. DOESN'T FEEL SUICIDAL AT THIS TIME. MEDICAL HISTORY OF HTN, HYPOTHYROIDISM ? KIDNEY ISSUES SECONDARY TO MEDICATIONS. HX. OF OCD, ANXIETY,DEPRESSION.
--- NOTE | 2016-10-24 07:13 | History & Physical ---
General Information and HPI MD Statement: I have seen and personally examined TRACEY OLMEDO and documented this H&P. The patient is a 50 year old M who presented with a patient stated chief complaint of [medical evaluation]. Source of Information: patient Exam Limitations: no limitations History of Present Illness: Patient admitted in Inpatient Psychiatry for suicidal ideation. Past medical history significant for hypertension patient currently on atenolol, follows up with [facility], compliant with medications. Patient was admitted in March 2016 in [place] for suicidal attempt, was found to have right upper extremity DVT, had IV line on the same arm, was started on Xeralto. Patient followed up with [facility] thereafter, was suggested to continues Xeralto For 6 months. Patient received a call from [facility] 3 days back to discontinue Xeralto, as 6 months was complete. Otherwise patient does not have any complaints. Allergies/Medications Allergies: Coded Allergies: No Known Allergies (10/22/16) Home Med list Alprazolam 0.5 MG TABLET 1 TAB PO Q4-6H PRN ANXIETY (Reported) Atenolol 50 MG TABLET 1 TAB PO DAILY HEART/BP (Reported) Buspirone HCl 30 MG TABLET 1 TAB PO TID MENTAL HEALTH (Reported) Fluvoxamine Maleate 100 MG TABLET 2 TAB PO BID MENTAL HEALTH (Reported) Lamotrigine 100 MG TABLET 1 TAB PO TID MENTAL HEALTH (Reported) Paroxetine HCl 40 MG TABLET 1 TAB PO TID MENTAL HEALTH (Reported) Primidone 50 MG TABLET 1 TAB PO TID MENTAL HEALTH (Reported) Thyroid,Pork ([place] Thyroid) 60 MG TABLET 1 TAB PO DAILY THYROID (Reported) Compliance With Home Meds: GOOD Past History Travel History Traveled to [place] past 21 day No Medical History Neurological: NONE EENT: NONE Cardiovascular: hypertension Respiratory: NONE Gastrointestinal: NONE Hepatic: NONE Renal: NONE Musculoskeletal: NONE Psychiatric: DEPRESSION ANXIETY OCD Endocrine: HYPOTHYROIDISM Blood Disorders: NONE Cancer(s): NONE History of MRSA: No History of VRE: No History of CDIFF: No Isolation History: Standard Surgical History Surgical History: non-contributory Past Family/Social History Family History Relations & Conditions if any Relation not specified for: *No pertinent family history Psychosocial History Where do you live? Home Services at Home: None Primary Language: Amharic Smoking Status: Never Smoked ETOH Use: occasional use Illicit Drug Use: denies illicit drug use Functional Ability ADLs Independent: dressing, eating, toileting, bathing. Ambulation: independent IADLs Independent: shopping, housework, finances, food prep, telephone, transportation , medication admin. Sexual History Sexually Active No Sexual Orientation Heterosexual Employment History Employment Disability Review of Systems Review of Systems Constitutional: Reports: no symptoms. EENTM: Reports: no symptoms. Cardiovascular: Reports: no symptoms. Respiratory: Reports: no symptoms. GI: Reports: no symptoms. Genitourinary: Reports: no symptoms. Musculoskeletal: Reports: no symptoms. Skin: Reports: no symptoms. Neurological/Psychological: Reports: no symptoms. Hematologic/Endocrine: Reports: no symptoms. Immunologic/Allergic: Reports: no symptoms. All Other Systems: Reviewed and Negative Exam & Diagnostic Data Last 24 Hrs of Vital Signs/I&O Vital Signs Date Time Temp Pulse Resp B/P Pulse O2 O2 Flow FiO2 Ox Delivery Rate 10/23 1956 97.4 97 120/87 10/23 1713 96.6 85 156/98 10/23 1623 95.3 87 20 139/95 98 Room Air 10/23 1332 98.4 82 16 124/88 100 Room Air 10/23 0936 96.8 85 16 126/90 97 Room Air Intake & Output 10/23 1600 10/24 0000 10/24 0800 Intake Total Output Total Balance Patient 95.878 kg Weight Physical Exam General Appearance Alert, Oriented X3, Cooperative, No Acute Distress Skin No Rashes, No Breakdown, No Significant Lesion HEENT Atraumatic, PERRLA, EOMI, Mucous Membr. moist/pink Neck Supple, No JVD, No thryomegaly, +2 Carotid Pulse wo Bruit Lymphatic Cervical nl Cardiovascular Regular Rate, Normal S1, Normal S2, No Murmurs Lungs Clear to Auscultation, Normal Air Movement Abdomen Normal Bowel Sounds, Soft, No Tenderness, No Hepatospenomegaly, No Masses Neurological Exam Findings: Normal Gait, Normal Speech, Strength at 5/5 X4 Ext, Normal Tone, Sensation Intact, Cranial Nerves 3-12 NL, Reflexes 2+ Cranial Nerves II through XII: Intact Extremities No Clubbing, No Cyanosis, No Edema, Normal Pulses Vascular Normal Pulses, Pulses Symmetrical Last 24 Hrs of Labs/Chuck: Laboratory Tests 10/22 10/22 1728 1728 Chemistry Sodium (137 - 145 mmol/L) 139 Potassium (3.5 - 5.1 mmol/L) 3.9 Chloride (98 - 107 mmol/L) 103 Carbon Dioxide (22 - 30 mmol/L) 24 Anion Gap (5 - 16) 12 BUN (9 - 20 mg/dL) 20 Creatinine (0.7 - 1.2 mg/dL) 1.3 H Estimated GFR (>60 ml/min) 59 L BUN/Creatinine Ratio (7 - 25 %) 15.4 Glucose (65 - 99 mg/dL) 77 Calcium (8.4 - 10.2 mg/dL) 9.8 Total Bilirubin (0.2 - 1.3 mg/dL) 0.6 AST (17 - 59 U/L) 30 ALT (21 - 72 U/L) 46 Alkaline Phosphatase (< 127 U/L) 68 Total Protein (6.3 - 8.2 g/dL) 7.6 Albumin (3.5 - 5.0 g/dL) 4.4 Globulin (1.9 - 4.2 gm/dL) 3.2 Albumin/Globulin Ratio (1.1 - 2.2 %) 1.4 Vitamin B12 (239 - 931 pg/mL) 398 Folate (2.76 - 20.0 ng/mL) 9.7 TSH (0.270 - 4.200 uIU/mL) 1.140 Free T4 (0.64 - 1.79 ng/dL) 1.23 Thyroxine (T4) (4.5 - 10.9 ug/dL) 6.9 Hematology CBC w Diff NO MAN DIFF REQ WBC (4.8 - 10.8 /CUMM) 7.3 RBC (4.70 - 6.10 /CUMM) 5.12 Hgb (14.0 - 18.0 G/DL) 14.6 Hct (42 - 52 %) 44.6 MCV (80.0 - 94.0 FL) 87.1 MCH (27.0 - 31.0 PG) 28.6 RDW (11.5 - 14.5 %) 13.5 Plt Count (130 - 400 /CUMM) 217 MPV (7.4 - 10.4 FL) 9.3 Gran % (42.2 - 75.2 %) 60.6 Lymphocytes % (20.5 - 51.1 %) 28.9 Monocytes % (1.7 - 9.3 %) 8.6 Eosinophils % (0 - 5 %) 1.4 Basophils % (0.0 - 2.0 %) 0.5 Absolute Granulocytes (1.4 - 6.5 /CUMM) 4.4 Absolute Lymphocytes (1.2 - 3.4 /CUMM) 2.1 Absolute Monocytes (0.10 - 0.60 /CUMM) 0.6 Absolute Eosinophils (0.0 - 0.7 /CUMM) 0.1 Absolute Basophils (0.0 - 0.2 /CUMM) 0 PUBS MCHC (33.0 - 37.0 G/DL) 32.8 L Toxicology Urine Opiates Screen (>2000 NG/ML) < 100.00 Methadone Screen (>300 NG/ML) 52 Barbiturate Screen (>200 NG/ML) 253 H Ur Phencyclidine Scrn (>25 NG/ML) < 6.00 Amphetamines Screen (>1000 NG/ML) < 100 U Benzodiazepines Scrn (>200 NG/ML) 500 H Urine Cocaine Screen (>300 NG/ML) < 50 Urine Cannabis Screen (>50 NG/ML) < 5.00 Serum Alcohol (<10 MG/DL) < 10.0 Diagnostic Data EKG Results Not done, will order Assessment/Plan Assessment: #1 hypertension: Continue atenolol #2 history of right upper extremity DVT: Patient was on Xeralto, completed 6 month duration, provoked DVT, [facility]. #3 suicidal ideation: Agree with psychiatry plan As Ranked By This Provider Problem List: 1. Suicidal ideation 2. OCD (obsessive compulsive disorder) 3. Hypertension Miscellaneous Miscellaneous Documentation Attending Case Discussed With: HECTOR LEVIN,JESUS Lopez Primary Care Physician: PATIENT HAS NO PRIMARY CARE DR. follows up with [facility] in [place] Patient sees these Specialists Psychiatrist Level of Patient Care: Jovan
[2016-10-24 07:44] VITALS: BP 115/84
--- NOTE | 2016-10-24 07:50 | Admission Certification ---
Admission Certification Certification Statement - As attending physician, I certify that at the time of - admission, based on clinical presentation, severity of - symptoms, need for further diagnostic testing and - therapeutic interventions, and risk of adverse outcomes - without in-hospital treatment, in my clinical assessment, - this patient requires an acute hospital stay for a minimum - of two nights or longer. I have also considered psychsocial - factors such as support system, advanced age, financial - issues, cognitive issues, and failed out-patient treatments, - past re-admission history, safety of patient, and lack of - compliance as applicable. Specific rationale supporting this admission is: Suicidal ideation
--- NOTE | 2016-10-24 10:55 | SOCIAL WORKER TX PLAN PSYCH ---
Treatment Plan - Please Document: - Evidence that there is ongoing collaboration between - the patient and the interdisciplinary team, - including the patient's active participation and - responsibility for engaging in the treatment regimen, - and that the treatment plan is individualized and - relevant to the patient's conditions. - Treatment plan should reflect documentation indicating - that all active therapeutic efforts are included. Strengths/Capabilities: good supports, past hx of employment, in current tx, wants help Physical Limitations (Interventions): none known Patient Identified Trmt Goals: " I want to feel better and function well." Discharge Plan: IOP Problem/Goals #1 Problem #1: suicidal ideation Goal (Short Term): Today I will attend 2 groups Today I will identify 2 stressors Today I will identify 2 positive supports Today I will work on recognizing 3 emotions I am feeling Goal (Assisted): Be free of suicidal thoughts/attempts Develop 3 coping skills to deal with depression Identify 3 positive support systems to call in crisis Develop a crisis plan with 3 brantley people Identify 2 positive traits per week about myself Identify 2 things I have to look forward to Identify 2 positive people in my life and 1 thing I appreciate about them Interventions: Learn ways to manage depressive symptoms accordingly and identify positive supports to manage life stressors and mood fluctuations. Modalities: Encourage groups, education on depression, provide CBT treatment, family meeting. DSM5/PS Stressors/Medical Prob Diagnosis' (DSM 5, Stressors, Medical): F33.2 - MDD, recc, severe; F41.1 - RUPERTO; F42 - OCD. Stressors - on disability. Medical - HTN, thyroid Current GAF: 30 Treatment Team - Responsibilities of members of the treatment team include: - Medication Management- MD or FUNDRAISING SALE REPRESENTATIVE - Medication Administration and Monitoring- Nurse - Group Therapy- Occupational Therapist - 1:1 Therapy,Disch Planning,family involvement-Rpg Programmer
[2016-10-24 12:08] VITALS: BP 129/91
--- NOTE | 2016-10-24 13:51 | NUR ---
PT VISIBLE IN THE [facility] TODAY. HIS GOAL WAS TO MEET WITH ENVIRONMENTAL HEALTH MANAGER TO DISCUSS MEDICATIONS. HE HAS BEEN GOING TO GROUPS THROUGHOUT THE DAY AND PARTICIPATING IN THEM. PT DID SHARE IN FOCUS GROUP TODAY, THAT HE IS A CONSTANT WORRIER, AND SUFFERS FROM OCD. IN THE [facility] PT HAS BEEN COOPERATIVE WITH STAFF DIRECTION, AND DENIES THOUGHTS TO HURT HIMSELF WHEN ASKED.
--- NOTE | 2016-10-24 15:22 | CPS MD/APRN INITIAL ASSE PSYCH ---
See Addendum Psychiatric Admission Dumper Operator's Note Reviewed: Yes Patient Seen and Examined: Yes Identifying Information: 50 year old male with a 25-year history of depression, anxiety, OCD. Chief Complaint: "I had suicidal thoughts, but I've had suicidal thoughts for 25 years." Reaction to Hospitalization: "I'm anxious, I'm worried about my meds." History of Present Illness Onset of Illness: Patient is a 50-year old male with a history of anxiety, OCD, and depression. Patient expressed increased suicidal thoughts in the context of recent medication changes in Paxil, Buspar and Luvox.Patient also expressed obsessive concerns about losing his 100% disability from the [facility]. Per crisis eval, patient had reviewed suicide plans prior to ED arrival including carbon monoxide poisoning and placing a plastic bag over his head. However, he did not act on either of these GRAIN TRADER. Patient was hospitalized in [place] in March 2016 after overdosing on Seroquel three days after attempting to place a plastic bag over his head. Prior to psychiatric hositalization in [place], the patient had been living in [place] for 3 years. During that time he was concerned about people coming up to him and asking if he was following them and trying to arrest them. He then traveled to [place], where he claimed he saw the same people who had accused him of following them in [place]. On encounter, today, patient denied SI, HI, plans and intent. He reported that his suicidal thoughts have been chronic in nature over 20 years. He reported that although he endorsed suicidal thoughts, he would never act on them. He identified protective factors of his parents who live in [place] and his friend Luis Antonio who brought him to the ED. Patient remained visibly anxious and hyperfocused on his inpatient medications, perseverated on needing his Paxil and Luvox increased (recently reduced on admission per Dr. Spaulding given that prescribed doses were above the recommended prescribing guidelines). Circumstances Leading to Admission: SI Reported SI plans Recent medication increases (Paxil, Luvox, Buspar) Problem(s) Justifying Need for Admission: SI and reported plans Past Psychiatric History Past Diagnosis(es)- if any: OCD Anxiety Depression Past Precipitating Factors- if any: Unknown - Include inpatient and outpatient treatment Treatment History: Dr. Jose Luis Amin (outpatient psychiatrist x 8 years, in [place]) Inpatient: [facility] in March 2016 s/p seroquel overdose 3 days after attempting to place a plastic bag over head (however pt removed it). [place], [place] x 5 years ago for depression/SI History of Suicide Attempts or Gestures March 2016 - s/p seroquel overdose 3 days after attempting to place a plastic bag over head (however pt removed it). Substance Abuse History: Alcohol: occasional use, approx "1 beer every few days." Could not recall last use. Denied use of illicits and tobacco products. Allergies: Coded Allergies: No Known Allergies (10/22/16) Home Med List: Paxil 120mg daily Luvox 200mg twice daily Xanax 0.5mg TID prn Primidone 50mg TID Lamictal 100mg TID Buspar 30mg TID Atenolol 50mg daily [place] Thyroid 1g daily - Include any medical condition(s) that may - impact the patient's recovery/remission Past History Medical History Neurological: NONE EENT: NONE Cardiovascular: hypertension Respiratory: NONE Gastrointestinal: NONE Hepatic: NONE Renal: NONE Musculoskeletal: NONE Psychiatric: DEPRESSION ANXIETY OCD Endocrine: HYPOTHYROIDISM Blood Disorders: NONE Cancer(s): NONE History of MRSA: No History of VRE: No History of CDIFF: No Isolation History: Standard Surgical History Surgical History: non-contributory Psychiatric Family/Social Hx Family History Psychiatric Illness: Mother - depression/anxiety Father- depression/anxiety Substance Use: Maternal uncle - heroin Suicides: Pt reported a suspected suicide attempt by his mother via overdose. Patient however was not certain this occured. Social History Living Situation: Patient reports living with his parents in [place] 6 months out of the year; and then with his friend Luis Antonio in [place] for the remaining 6 months. Significant Relationships (family/friends): Friend Luis Antonio, parents Education: Bachelor's in mathematics and computer science Vocation/Occupation: Unemployed. Receives 100% disability. Served in the [employer] x 9 years. Is a . Legal: Denied. Healthly Behaviors Screening Tobacco Screening Tobacco Use from ED Docu: Never used - If tobacco counseling indicated - the following topics are required. - #1 Recognizing dangerous situations. - #2 Coping Skills. - #3 Basic information about quitting. Status of Tobacco Cessation Counseling: N/A B/C NO TOB USE Cessation Med Status: No Tobacco Use last 30d Alcohol Screening - ETOH screen POS if BAL >=80 or Audit-C>= M4/F3 Audit-C Score from Diag Assess: 4 Blood Alcohol Level: Laboratory Tests 10/22 1728 Toxicology Serum Alcohol (<10 MG/DL) < 10.0 Alcohol Use Screening Results: Pos per Audit C &/or BAL - If ETOH counseling indicated - the following topics are required. - #1 Express concern about the patient's - drinking at unhealthy levels, include informing - of national norms for moderate drinking: - men <= 14 drinks/week, max 4 drinks/occasion - women <= 7 drinks/week, max 3 drinks/occasion - #2 Providing feedback, including linking alcohol to - negative physical effects (liver injury, hypertension) - negative emotional effects (relationship problems and - depression) - negative occupational consequences (reduced work - performance) - #3 Advising the patient to abstain from alcohol or - to drink below national norms for moderate drinking - (as listed above). Status of ETOH Use Counseling: #1, #2 AND #3 Completed. Metabolic Screening - Screen if on a Neuroleptic Medication - Metabolic screening should include: - Blood Pressure, BMI, Glucose or Hgb A1c, & a - Lipid profile from within the past 365 days. Metabolic Screening () Not Applicable, patient not on a neuroleptic. OR ([X]) Patient on a neuroleptic(s) . Enter below results for Glucose or Hemoglobin A1C, and lipid panel if obtained during the last 365 days. BMI: 28.600 Blood Pressure: 142/91 Laboratory Results (If applicable): Lipid panel ordered for 10/25/16 at 0600. Lab Glucose 77 mg/dL 10/22/16 1728 Exam and Plan Mental Status Examination Ambulation Status: steady and independent Appearance: 50 y/o CM who appeared stated age. Tall, thin, glasses, dark hair, facial hair. Dressed in blue paper scrub top and jeans. Attitude towards examiner: Anxious Psychomotor activity: Restless Behavior: Restless, perseverative, med-focused,frequently interupted screenplay writer during conversation. Quality of speech: Anxious, pressured at times Affect: Anxious Mood: Anxiety 7/10 Depression 6/10 Suicidal Ideation: Pt denied Homicidal Ideation: Pt denied Hallucinations: Pt denied Paranoid/Delusional Material: None overtly evident Difficulties with thought organization: Distractable + obsessive thoughts + racing thoughts Insight: Limited Judgment: Fair Orientation: A&Ox3 Cognition: Grossly intact Memory Function: Grossly intact Estimate of intellectual functioning: Above average Assets/Strengths Patient Identified Assets/Strengths: Supprotive parents and friend Motivated for treatment Open to medication adjustments Impression/Plan Impression and Plan: Patient is a 50 y/o male with a longstanding history of OCD, anxiety and depression, with suspected psychotic features given received crisis collateral suggestive for prior paranoia. Patient appeared very wedded to outpatient medications, was initially resistant to medication changes, but later formed some insight that if these medications were optimal then he would not be admitted psychiatrically. Patient's mood changes could possibly be related to recent medication changes in addition to psychosocial stressors including financial stress. Patient will be monitored on unit for safety, mood, racing thoughts, and stabilization. With much encouragement and medication education, patient was agreeable to tapering off of Luvox, and remain on Paxil. Patient was very focused on increasing Paxil to 80mg daily as he claimed he did well on this dose in the past. For, now patient was agreeable to remain at 60mg daily for depression/ anxiety. He was offered trial of [place] for mood stabilization. The risk/benefit/se profiles of lithium including kideny/thyroid risk, tremor, metabolic risks, and toxicity were reviewed. Patient was also informed of need for routine lab work, good hydration and avoiding use of ibuprofen. Pt declined this option given necessary serum monitoring and pre-existing thyroid condition. Offered trial of Zyprexa for off-label use in targeting anxiety, and for mood stabilization. Reviewed the risk/se profiles of Zyprexa including irreversible movement disorders, metabolic syndrome, sedation, weight gain, hypertension and hyperlipidemia. Patient verbalized understanding and was agreeable to trial. - Include all active medical diagnosis that require tx DSM 5 Diagnosis(es): OCD Unspecified anxiety disorder Unspecified depressive disorder R/O Bipolar disorder - Initial Tx Plan for Active Psych & Medical Conditions Treatment Plan: 1. Monitor patient on unit for safety, mood, suicidal ideation and thought process. 2. Will taper off of Luvox. Will decrease by 50mg daily. Patient will receive 100mg QAM and 150mg QHS today; then 100mg twice daily tomorrow, and will continue to titrate down by 50mg daily. 3. Continue Paxil 60mg daily, may consider increasing to 80mg after speaking to patient's outpatient psychiatrist. 4. GERBER obtained for Dr. Amin. VM left today requesting a return phone call for collateral. 5. Start Zyprexa 2.5mg BID for anxiety/mood stabilization. Will also order Zyprexa 2.5mg Q6H prn for anxiety/racing thoughts. 6. H&P per computer networker team. 7. When psychiatrically stable, will refer to IOP. 8. Obtain EKG. Will rpt BUN, Cr, and EGFR given mildly abnormal results on admission (possibly suggestive of dehydration). - Factors that would help patient function - in a less restrictive setting. Factors: Alleviation of SI Stabilization of depression/anxiety/racing thoughts Referral to IOP
[2016-10-24 15:53] VITALS: BP 142/91
--- NOTE | 2016-10-24 18:48 | SOCIAL WORKER SOCIAL HX PSYCH ---
Social History Basic Assessment Insurance Authorization: Insurance #1: Insurance name: [employer] Phone number: Policy number: [id number] Group number: Authorization number: Curr Source of Income/Entitlements: [facility] Disability Primary Care Physician: Patient's PCP: PATIENT HAS NO PRIMARY CARE DR PCP's Phone Number: Present Problem: Met with Leonard Chambers" today to complete social history. He stated he is not feeling suicidal today, no HI, no psychosis. He seemed anxious and blunted affect. He stated he has been "stressed all day about my medications." He stated he has had "alot of fear" lately - referring to prior to admission. He expressed how he and his psychiatrist have been increasing his medications... "and when I go up on my medications I worry more, my thoughts get complicated - I worry I am going to get arrested for something I didn't do." He stated when his medication dosages are lower that he..."worries about regular things..like eating and finances, and where am I going to stay." Some odd, perseverative thinking about his medications seem to be present. Leonard is oriented x3, does seem to exhibit odd thinking, and paranoia - especially when speaking about his experience in [place] and [place] - somehow got involved with drug dealers who thought he was a spy. He stated "It was complicated, I wasn't a spy, the more I tried to convince them, the worse it got, they knew everyone, and somehow they all knew who I was." He stated his appetite id low - he lost 30lbs in the past month, sleep is Ok last night, but sometimes he is "up all night." He stated he lives with his friend, Luis Antonio half the time, and the other half of the time lives with his parents in [place]. Leonard was for 8yrs has been for 6yrs, no children. He stated he served in [employer] for 9yrs from [id number], then retired. 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 Leonard agreed to have a meeting with his friend, Luis Antonio tomorrow if possible with Juiett Erika, CUSTOMER SERVICES SUPERVISOR (his primary SW). He signed an GERBER. Primary Language? Luxembourgish Language(s) Spoken At Home: Luxembourgish Living Situation Other Living Arrangement: relative's/guardian's derek, homeless living w/friend Feel Safe Where You Are Living Yes Feel Safe in Relationships? Yes Comments: Pt. stated he didn't feel safe when he was in [place] and [place], "I saw the same people in both places, they thought I was following them, I wasn't." Allergies - Coded Allergies: No Known Allergies (10/22/16) Current Medications - Scheduled Medications Atenolol 50 MG TABLET 1 TAB PO DAILY HEART/BP #30 (Reported) Entered as Reported by REINALDO ORTIZ on 10/22/161927 Buspirone HCl 30 MG TABLET 1 TAB PO TID MENTAL HEALTH #90 (Reported) Entered as Reported by REINALDO ORTIZ on 10/22/161925 Fluvoxamine Maleate 100 MG TABLET 2 TAB PO BID MENTAL HEALTH #90 (Reported) Entered as Reported by REINALDO ORTIZ on 10/22/161924 Lamotrigine 100 MG TABLET 1 TAB PO TID MENTAL HEALTH #90 (Reported) Entered as Reported by REINALDO ORTIZ on 10/22/161926 Paroxetine HCl 40 MG TABLET 1 TAB PO TID MENTAL HEALTH #60 (Reported) Entered as Reported by REINALDO ORTIZ on 10/22/161924 Primidone 50 MG TABLET 1 TAB PO TID MENTAL HEALTH #90 (Reported) Entered as Reported by REINALDO ORTIZ on 10/22/161925 Thyroid,Pork ([place] Thyroid) 60 MG TABLET 1 TAB PO DAILY THYROID #60 ( Reported) Entered as Reported by REINALDO ORTIZ on 10/22/161926 Scheduled PRN Medications Alprazolam 0.5 MG TABLET 1 TAB PO Q4-6H PRN ANXIETY #90 (Reported) Entered as Reported by REINALDO ORTIZ on 10/22/161926 Discontinued Medications Rivaroxaban (Xarelto) 15 MG TABLET 1 TAB PO BID BLOOD THINNER #180 (Reported) Discontinued reason: Per Doctor Decision Past History Past Medical History Neurological: NONE EENT: NONE Cardiovascular: hypertension Respiratory: NONE Gastrointestinal: NONE Hepatic: NONE Renal: NONE Musculoskeletal: NONE Psychiatric: DEPRESSION ANXIETY OCD Endocrine: HYPOTHYROIDISM Blood Disorders: NONE Cancer(s): NONE Past Surgical History Surgical History: non-contributory /Family History Place/Country of Origin: [place], [place] Childhood Family Constellation: Parents and 2 brothers Primary Childhood Caretakers: father, mother Family Life During Childhood: Was "Ok" "I was an overachiever." DCF Involvement? No Mother's Age (Current/): 70 Relationship w/Mother: Good relationship, I am very close to her. Father's Age (Current/): 75 Relationship w/Father: Close with Father Any Sibling(s)? Yes Sibling's Gender(s)/Age(s): male Sibling 1:, male Sibling 2: Relationship w/Sibling(s): 2 brothers - 47yo, 45yo - not in touch alot, we get along. Relationship w/Friends: Luis Antonio - friend, I have friends in [place] too. Family Psych/Sub Abuse/Add Hx: diagnosis Other Comments: Mother - anxiety and she attempted suicide OD on pills - she told my ex- about it not me. Abuse/Trauma History Trauma History/Current Trauma: Denies Legal History Current Legal Status: none Have you ever been arrested No Number of Arrests: 0 Hx of Juvenile Legal Charges? No Psychosocial History Primary Support System: father, mother, friend, Family in [place] - Aunt and cousins, friends in [place] Strengths/Capabilities: good supports, past hx of employment, in current tx, wants help Weaknesses: paranoia, anxiety Physical Limitations (Interventions): none known Last Physical: 1 month ago History of Seizures? No History of Blackouts? No ADL Limitations: None reported [place]/Social/Peer Relations Friend - Luis Antonio (used to be in a relationship but it didn't work out. Now we are very close. I live there 2 weeks out of the month. Meaningful Activities: I am trying to find some Childhood Mu-Ism: no mandaeism stated Current Judaism Affiliation: no mandaeism stated Is Spirituality Important to You? yes Patient's Ethnicity: Luxembourgish ([place]er), Salvadorean, Saudi Arabian Cultural/Ethnic Issues: None reported Are There Developmental Issues? No Milestones Achieved: WNL Psychiatric Treatment History Psych Treatment Inpatient Treatment Yes (3x's) Outpatient Treatment Yes Location of Treatment OP- Dr. Amin - in [place]; IP- [facility] Reason for Treatment Depression, SI, suicide attempt (6 mos ago) Dates of Treatment OP- current; IP - once 6 mos ago, once4 or 5 yrs ago, once 10 yrs ago. Response to Treatment unk Current Roll Trucker: Dr. Amin Treatment of Prior Episodes: Unknown Diagnosis: Depression, OCD Psychodynamic Issues: Multiple moves, disabled, paranoia, SI. Risk Factors: high anxiety/distress, history of suicide atmpts, SA/MH hospitalized, male Substance Use/Abuse History Drug Use/Abuse Substance Used/Abused Alcohol First Use unk Last Used two nights ago How much used/taken two beers How often on occasion For how long unk Route of use oral Substance Abuse Treatment Substance Abuse Treatment Inpatient Treatment No Sexual History Sexually Active No Sexual Orientation Heterosexual Use of Protection Yes Sometimes Education History Highest Level of Education: bachelor's degree Highest Grade Completed: [employer] Number of College Years: 4 College Degree/Major: [employer] Preferred Learning Style: auditory HX of Learning Difficulties: None reported Barriers to Learning: None reported Special Communication Needs: None reported Employment History Employment Disability Not in Labor Force: Disabled Vocation/Occupational Hx: Disabled since 2012 No. 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 History Have You Been in The ? Yes If Yes, Explain: [employer] 9yrs, retired. [id number] Type of Discharge: Honorable Date of Discharge: 1996 Current Mental Status Problem List: 1. Suicidal ideation 2. Major depress dis, severe 3. OCD (obsessive compulsive disorder) Mental Status Orientation: Person, Place, Situation Affect: Anxious, Blunted, Flat, Sad Speech: WNL Neuro-vegetative: Anhedonia, Helpless, Sleep Disturbance Appearance Appearance- Dress/Hygiene: WNL Behaviors Thought Process: WNL Thought Content: WNL Memory: WNL Insight: Poor SI/HI Risk Assessment Past Suicidal Ideation/Attempts Yes (3 past attempts) Current Suicidal Ideation/Att Yes (has plan "if life gets worse") Past Homicidal Ideation/Att: No Current Homicidal Ideation/Attempts No Degree of Intent: Plan (Has plans if "life gets worse"), Thoughts/No Intent Danger To: Self Gravely Disabled: none Risk Factors: High Anxiety/Distress, SA/MH Hospitalization(s), Hx of suicide attempt(s), Lack of concern outcome, Male Lethality Ratin - Conclusion and Recommendations for treatment - and discharge planning
--- NOTE | 2016-10-24 19:00 | SOCIAL WORKER PROG NOTE PSYCH ---
Social Work Progress Note Progress Note Met with Leonard Chambers" today to complete social history. He stated he is not feeling suicidal today, no HI, no psychosis. He seemed anxious and blunted affect. He stated he has been "stressed all day about my medications." He stated he has had "alot of fear" lately - referring to prior to admission. He expressed how he and his psychiatrist have been increasing his medications... "and when I go up on my medications I worry more, my thoughts get complicated - I worry I am going to get arrested for something I didn't do." He stated when his medication dosages are lower that he..."worries about regular things..like eating and finances, and where am I going to stay." Some odd, perseverative thinking about his medications seem to be present. Leonard is oriented x3, does seem to exhibit odd thinking, and paranoia - especially when speaking about his experience in [place] and [place] - somehow got involved with drug dealers who thought he was a spy. He stated "It was complicated, I wasn't a spy, the more I tried to convince them, the worse it got, they knew everyone, and somehow they all knew who I was." He stated his appetite id low - he lost 30lbs in the past month, sleep is Ok last night, but sometimes he is "up all night." He stated he lives with his friend, Luis Antonio half the time, and the other half of the time lives with his parents in [place]. Leonard was for 8yrs has been for 6yrs, no children. He stated he served in [employer] for 9yrs from [id number], then retired. 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 Leonard agreed to have a meeting with his friend, Luis Antonio tomorrow if possible with Samantha James LCSW (his primary SW). He signed an GERBER. Leonard stated he is interested in IOP at [facility] but isn't sure we accept . If not he will go to a [facility] program.
[2016-10-24 19:47] VITALS: BP 126/89
--- NOTE | 2016-10-24 20:24 | NUR ---
PT IS COOPERATIVE WITH STAFF AND PEERS, AND COMPLIANT WITH UNIT RULES. PT IS OFTEN IN [place], INTERACTING WELL WITH OTHERS. MOOD IS STABLE, AFFECT APPEARS EUTHYMIC TO FULL RANGE, SLIGHTLY ANXIOUS AT TIMES, COMMUNICATION IS ORGANIZED AND APPEARS NORMAL IN ALL RESPECTS, AND APPETITE IS NORMAL. PT DEIES SI AT THIS TIME.
[2016-10-25 07:42] VITALS: BP 128/76
--- NOTE | 2016-10-25 07:49 | CP SOUTH PROGRESS NOTE PSYCH ---
See Addendum Psych (Inpt) Progress Note Progress Note Include the following elements, when applicable: Involvement in the active treatment of the patient with behavioral observations of the patient and the patient's response to the treatment. Review of the ongoing treatment process in the context of the treatment plan. Indication of how multi-disciplinary staff members are carrying out the treatment plan. Plans for future interventions and recommendations for revision of the treatment plan. Liaison with other physicians/providers. Progress Note: [I discussed this patient's progress to date, current mental status, treatment process in the context of the treatment plan, and discharge planning with staff/ team in the daily morning inpatient team meeting. I also met with the patient myself in individual session.] S: "I feel a lot calmer this morning, mornings are usually really tough for me. " O: Current Medications Sig/Uday Start time Last Medication Dose Route Stop Time Status Admin Alprazolam 0.5 MG TID PRN 10/23 1100 AC 10/24 PO 10/30 1059 1420 Atenolol 50 MG DAILY 10/23 1053 AC 10/24 PO 0934 Buspirone HCl 30 MG TID 10/23 1054 AC 10/24 PO 2143 Fluvoxamine Maleate 100 MG 10/25 2200 AC PO 10/25 2201 Fluvoxamine Maleate 100 MG 10/25 0800 AC PO Fluvoxamine Maleate 150 MG 10/24 2200 DC 10/24 PO 10/24 2201 2143 Fluvoxamine Maleate 100 MG 10/24 0800 DC PO Fluvoxamine Maleate 100 MG 10/24 0800 DC 10/24 PO 0934 Fluvoxamine Maleate 200 MG 10/23 2200 DC 10/23 PO 2136 Lamotrigine 100 MG TID 10/23 1054 AC 10/24 PO 2143 Olanzapine 2.5 MG 0800,10/24 2200 AC 10/24 PO 2144 Olanzapine 2.5 MG Q6-PRN PRN 10/24 1815 AC PO Paroxetine HCl 60 MG 10/25 0800 AC PO Paroxetine HCl 60 MG 10/24 0800 DC 10/24 PO 0934 Primidone 50 MG TID 10/23 1055 AC 10/24 PO 2144 Thyroid 1 GR DAILY 10/23 1000 AC 10/25 PO 0738 Vital Signs Date Time Temp Pulse Resp B/P Pulse O2 O2 Flow FiO2 Ox Delivery Rate 10/25 0742 96.4 75 128/76 10/24 1947 97.4 83 126/89 10/24 1553 74 142/91 10/24 1208 73 129/91 A: Chart, progress notes, labs, VS, and medication list reviewed. Yesterday, Luvox was decreased from 200mg to 150mg at bedtime and 100mg QAM was contonued. Paxil 60mg was continued daily, and Zyprexa 2.5mg BID was started off-label for anxiety, and racing thoughts/mood stabilization. Also, yesterday, a VM was left for patient's outpatient psychiatrist Dr. Jose Luis Amin. On encounter today, patient presented A&Ox3. Speech was normal in rate, tone and volume. Affect appeared calm and constricted. He reported his mood was "calmer" and felt Zyprexa helped tame his anxiety last evening. Eye contact was appropriate. Thought process remained perseverative about medications and antidepressant dosages. Patient was fixated on increasing both Paxil and Luvox back to previous dosages (Luvox 200mg BID and Paxil 120mg daily). Patient showed limited insight into previously reported improvement in mood with current medication adjustments. When asked why he requested Luvox and Paxil be increased , patient reported that in the past he had done well on these at outpatient prescribed doses. When asked why he was admitted inpatient, patient reported he had expressed SI and suggested that increases in antidepressants were partially responsible for this. Patient continued to show limited insight and judgement surrounding medications. He reported improvement in anxiety, rated this 5/10 (10 being the worst) and depression of 6/10 (10 being the worst). He denied passive and active suicidal ideation, plans and intent. He denied homicidal ideation, auditory and visual hallucinations. He denied feeling hopeless and worthless. Patient reported tolerating all medications well and denied untoward medication effects. He was agreeable to decrease Luvox again tonight to 100mg at bedtime, and continue Luvox 100mg AM. P: 1. Continue monitoring patient on unit for safety, suicidal ideation, mood and thought process. 2. Continue Zyprexa 2.5mg BID for racing thoughts/anxiety/mood stabilization. Continue Zyprexa 2.5mg Q6H prn for anxiety/racing thoughts/agiation. 3. Dispo planning per primary team. 4. Will attempt to call Dr. Amin again today for collateral.
--- NOTE | 2016-10-25 11:46 | NUR ---
PT IS COMPLIANT AND COOPERATIVE WITH STAFF. PT IS COMPLIANT WITH UNIT RULES. PT IS OUT IN COMMUNITY INTERACTING WELL WITH STAFF AND PEERS. PT IS ACTIVE IN GROUPS. PT MOOD IS STABLE WITH A FULL RANGE AFFECT. PT REPORTS ANXIETY AT TIMES. PT GOAL THIS MORNING WAS TO ADJUST TO NEW MEDICATION AND ATTEND GROUPS. PT DENIES SI THOUGHTS.
[2016-10-25 12:48] VITALS: BP 137/88
--- NOTE | 2016-10-25 14:25 | IP INCIDENTAL NOTE PSYCH ---
Incidental Note Notation: This afternoon, I received a phone call from Dr. Amin's office who requested a signed GERBER, then reported that Dr. Amin would return my phone call. Signed GERBER was faxed to office (#[phone]). Awaiting call from Dr. Amin.
--- NOTE | 2016-10-25 14:43 | IP INCIDENTAL NOTE PSYCH ---
Incidental Note Notation: Received collateral from Dr. Amin at 14:25PM. Per Collateral, the patient has a history of severe OCD and episodes of psychosis. He was placed on disability due to symptom impairment. Per Dr. mAin, patient has always required "high doses" of antidepressants to manage OCD symptoms. Dr. Amin recommended patient receive genetic testing outpatient. He recounted patient's previous psychiatric hospitalization (which was described in ED crisis note) in [place] , where patient had been psychotic, then admitted inpatient in 2016. 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 He had also trialed Seroquel which had no effect. Informed Dr. Amin of current inpatient medication adjustments, who was in agreement with regimen and plan for patient to f/u with IOP post-discharge.
[2016-10-25 15:52] VITALS: BP 124/72
--- NOTE | 2016-10-25 16:11 | SOCIAL WORKER PROG NOTE PSYCH ---
Social Work Progress Note Progress Note Patient had family meeting today with this writer producer, Melanie Shepard APRN and patients friend Dotty who he stays with off and on. Patients friend was able to give detail histroy of patients mental health condition and medication trials. Patient expressed extreme concern over current med changes and was having a difficult time understanding the rationale for the current med changes. Patient appeared anxious during the meeting but was able to participate appropriately. Patient reported that he would like to attend IOP with once discharged from the hospital and feels this would be the safest step down for him. Dotty agreed and was in support of this plan. Patient reports no kwok to leave the hospital at present and reports feeling safe and comfortable here. We anticipate discharge for the end of the week. He denies SI/HI/AH/VH at present.
[2016-10-25 19:21] VITALS: BP 124/78
--- NOTE | 2016-10-26 06:00 | NUR ---
PT CONTINUES TO WORRY ABOUT MED CHANGES. HE APPEARED TO SLEEP WELL. PT WAS UP EARLY.
[2016-10-26 06:13] VITALS: BP 150/99
[2016-10-26 07:57] VITALS: BP 126/92
--- NOTE | 2016-10-26 10:22 | SOCIAL WORKER PROG NOTE PSYCH ---
Social Work Progress Note Progress Note Patient authorized by Amado at [facility] from 10/23-10/28. Tracking # [id number]. Review on 10/28 with Amado at [phone].
--- NOTE | 2016-10-26 10:41 | CP SOUTH PROGRESS NOTE PSYCH ---
See Addendum Psych (Inpt) Progress Note Progress Note Include the following elements, when applicable: Involvement in the active treatment of the patient with behavioral observations of the patient and the patient's response to the treatment. Review of the ongoing treatment process in the context of the treatment plan. Indication of how multi-disciplinary staff members are carrying out the treatment plan. Plans for future interventions and recommendations for revision of the treatment plan. Liaison with other physicians/providers. Progress Note: [I discussed this patient's progress to date, current mental status, treatment process in the context of the treatment plan, and discharge planning with staff/ team in the daily morning inpatient team meeting. I also met with the patient myself in individual session.] S: "I had a horrible morning." O: Current Medications Sig/Uday Start time Last Medication Dose Route Stop Time Status Admin Alprazolam 0.5 MG TID PRN 10/23 1100 AC 10/24 PO 10/30 1059 1420 Atenolol 50 MG DAILY 10/23 1053 AC 10/26 PO 0840 Buspirone HCl 30 MG TID 10/23 1054 AC 10/26 PO 0840 Fluvoxamine Maleate 100 MG 10/26 2200 AC PO Fluvoxamine Maleate 100 MG 0 10/25 2200 DC 10/25 PO 10/25 2201 2216 Fluvoxamine Maleate 100 MG 0800 10/25 0800 AC 10/26 PO 0841 Lamotrigine 100 MG TID 10/23 1054 AC 10/26 PO 0840 Olanzapine 5 MG 0800,10/26 2200 AC PO Olanzapine 2.5 MG 1400 10/26 1400 CAN PO Olanzapine 2.5 MG ONE TIME ONE 10/26 1045 UNVr PO 10/26 1046 Olanzapine 2.5 MG 0800,10/24 2200 DC 10/26 PO 0840 Olanzapine 2.5 MG Q6-PRN PRN 10/24 1815 AC 10/25 PO 1230 Paroxetine HCl 60 MG 00 10/25 0800 AC 10/26 PO 0840 Primidone 50 MG TID 10/23 1055 AC 10/26 PO 0839 Thyroid 1 GR DAILY 10/23 1000 AC 10/26 PO 0840 Vital Signs Date Time Temp Pulse Resp B/P Pulse O2 O2 Flow FiO2 Ox Delivery Rate 10/26 0757 97.4 88 126/92 10/26 0613 85 150/99 10/25 1921 96.9 81 124/78 10/25 1552 88 124/72 10/25 1248 68 137/88 A: Chart, progress notes, VS, labs, and medication list were reviewed. BP was elevated this morning 150/99, but normalized after receiving daily scheduled atenolol. Will continue to monitor BP. Patient described having an anxious morning. Upon awakening, he reported having "an out of body experience." He had difficulty articulating this experience, but reported having layed in bed for minutes "extremely anxious, nervous, and shaky. " He could not recall what he had been thinking at that time. He reported this episode resolved on its own. He became tearful when recalling this episode during our encounter. He reported "I'm so tired of fighting my OCD." He reported that he felt as if he had been working himself up "mentally" over recent medication adjustments inpatient. He reported having great difficulty with change, and that watching his Luvox and Paxil be decreased have very hard for him. Despite this, he reported some relief from newly introduced Zyprexa. He also showed improved insight, expressing that "if my medications had been right, then I wouldn't be here." He reported feeling less anxious since starting Zyprexa. He denied acute symptoms of depression. He denied passive and active suicidal ideation, plans and intent. He denied homicidal ideation, auditory and visual hallucinations. He reported continued racing thoughts - he could not elaborate on content. Thought process was linear. Thought content was anxious. Cognition was grossly intact. He reported difficulty falling asleep but not staying asleep. He reported having a stable appetite. He reported tolerating all medications well and denied untoward medication effects. Will currently keep Luvox at 100mg BID and Paxil at 60mg daily for OCD management, as patient continues to express great anxiety about tapering entirely off of Luvox. I will increase Zyprexa to 5mg BID for anxiety/mood stabilization/racing thoughts, and will recommend that IOP considers finishing Luvox taper to off. Patient was agreeable to Zyprexa increase. P: 1. Continue monitoring patient on unit for safety, mood and thought process. 2. Increase Zyprexa from 2.5mg BID to 5mg BID for anxiety/mood stabilization/ racing thoughts. 3. Dispo planning per primary team - likely referral to [facility].
--- NOTE | 2016-10-26 11:46 | NUR ---
PT IS ATTENDING ALL THE GROUPS AND VERBALIZING HIS CONCERNS APPROPRIATELY. PT IS VERY CONCERNED ABOUT RECENT MED CHANGES BUT UNDERSTANDS THE NEED TO LOOK AT HIS MED REGIME IN ORDER TO HELP WITH HIS ANXIETY AND DEPRESSION. HE DENIES SUICIDAL THOUGHTS AT THIS TIME. HE IS FRIENDLY WITH STAFF AND PEERS
[2016-10-26 12:48] VITALS: BP 131/91
--- NOTE | 2016-10-26 16:57 | SOCIAL WORKER PROG NOTE PSYCH ---
Social Work Progress Note Progress Note SW met with patient this afternoon. Patient presented somewhat less anxious this afternoon but shared about paranoid thoughts he has experienced over the past few years. Patient identifies these paranoid thoughts as "OCD" but possibly may be related more to psychotic/paranoid thinking. Patient shared that his biggest fear is that he will be accused of a crime that he is innocent of. Patient constantly fears people are watching him and believe he is guilty for something he did not do and that the will be arrested and incarcerated. He reports that he fears leaving his fingerprints on items at the grocery store so will hold items in ways where his hands do not touch the item. He reports believing that people feel he is an marble coper so he tries to act like he is not one but then ends up looking like he is one. Patient reports that he is still experiencing these beliefs and usually when he experiences these thoughts he does not have suicidal thoughts. On the other hand, when he does not experience these paranoid thoughts , he starts having active suicidal thoughts. He reports feeling like he never is not going to experience one or the other. Patient denies SI at present and reports feeling safe in the hospital but feels that his paranoid thoughts may be increasing.
[2016-10-26 17:29] VITALS: BP 147/99
[2016-10-26 19:50] VITALS: BP 145/93
--- NOTE | 2016-10-26 22:25 | NUR ---
PT IS VISIBLE ON UNIT, SOCIAL WITH PEERS AND STAFF. VERY PLEASANT AND COOPERATIVE. ATTENDED WRAP UP MEETING AND PARTICIPATED. NO COMPLAINTS OR SI REPORTED. PT HAS A STABLE MOOD AND FULL RANGE AFFECT.
--- NOTE | 2016-10-27 06:22 | NUR ---
PATIENT SLEPT ALL NIGHT.
[2016-10-27 07:59] VITALS: BP 146/99
--- NOTE | 2016-10-27 09:07 | SOCIAL WORKER PROG NOTE PSYCH ---
Social Work Progress Note Progress Note Patient requested to meet with me first thing this AM. Patient reports feeling very anxious and "not right mentally." He reports experiencing suicidal thoughts this AM and is nervous thinking about returning home. Patient reports that he is worried he wont be able to complete simple tasks at home and is worried about failing. Patient appeared to be somewhat paranoid in his thoughts and was concerned about privacy when we were meeting. This short story writer informed him that discharge date is not definite and will be assessed daily. I moved his intake at [facility] to tomorrow at 12:45pm in order to re-assess patient tomorrow AM and see if he will be ready to discharge or if we should wait until early next week. Patient agreed this was a good plan and reported feeling calmer after our conversation. He took a PRN prior to our meeting which he also felt was helping control his anxiety.
[2016-10-27 12:12] VITALS: BP 149/99
--- NOTE | 2016-10-27 13:24 | NUR ---
PT IS COMPLIANT AND COOPERATIVE. MOOD IS STABLE WITH A CONSTRICTED AND EUTHYMIC AFFECT. PT EXPRESSED SOME FLEETING SI THOUGHTS THIS AM- SAYS THEY HAVE SINCE SUBSIDED. NO COMPLAINTS OFFERED. PT IS PRESENT IN THE COMMUNITY AND INTERACTING WITH PEERS AND STAFF. PT IS ATTENDING GROUPS. VITALS ARE STABLE, APPETITE IS GOOD.
--- NOTE | 2016-10-27 15:55 | CP SOUTH PROGRESS NOTE PSYCH ---
Psych (Inpt) Progress Note Progress Note Progress Note: I discussed this patient's progress to date, current mental status, treatment process in the context of the treatment plan, and discharge planning with staff/ team in the daily morning inpatient team meeting. I also met with the patient myself in individual session. SUBJECTIVE: "I've had suicidal thoughts all my life. It never progressed to planning. I'd rather have suicidal ideation and anxiety." OBJECTIVE: Current Medications Sig/Uday Start time Last Medication Dose Route Stop Time Status Admin Alprazolam 0.5 MG TID PRN 10/23 1100 AC 10/27 PO 10/30 1059 1334 Atenolol 50 MG DAILY 10/23 1053 AC 10/27 PO 0758 Buspirone HCl 30 MG TID 10/23 1054 AC 10/27 PO 0758 Fluvoxamine Maleate 100 MG 0 10/26 2200 AC 10/26 PO 2200 Fluvoxamine Maleate 100 MG 0810/25 0800 AC 10/27 PO 0757 Lamotrigine 100 MG TID 10/23 1054 AC 10/27 PO 0758 Olanzapine 5 MG 10/28 0800 UNVr PO Olanzapine 10 MG AT BEDTIME 10/27 2200 UNVr PO Olanzapine 2.5 MG ONCE ONE 10/27 1545 UNVr PO 10/27 1546 Olanzapine 5 MG 0800,10/26 2200 DC 10/27 PO 0758 Olanzapine 2.5 MG Q6-PRN PRN 10/24 1815 DC 10/26 PO 1641 Paroxetine HCl 60 MG 10/25 0800 AC 10/27 PO 0758 Primidone 50 MG TID 10/23 1055 AC 10/27 PO 0758 Thyroid 1 GR DAILY AC 10/28 0700 AC PO Thyroid 1 GR DAILY 10/23 1000 DC 10/27 PO 0757 Vital Signs Date Time Temp Pulse Resp B/P Pulse O2 O2 Flow FiO2 Ox Delivery Rate 10/27 1212 67 149/99 10/27 0759 97.0 85 146/99 10/26 1950 98.1 91 145/93 10/26 1729 73 147/99 ASSESSMENT: Patient reports that he had a "bad morning." This afternoon, he is however feeling better. States he's tolerating Zyprexa well, and it appears to be effective. States that he has suffered his whole life from OCD, anxiety, and paranoia. Patient amenable to increasing Zyprexa at night for continuing anxiety, and intermittent paranoid ideation. We spoke about his long-term use of high doses of both Paxil and Luvox. Patient was educated on the problems taking 2 SSRIs. Patient states that he is unhappy that his doses of these medications were reduced, stating that he had been doing well on these medications. I pointed out to the patient, that perhaps he was not actually feeling so well, as evidenced by his coming to the hospital. Depression:10; Anxiety:04/09 (with 10 the worst.) Denies suicidal ideation, homicidal ideation, auditory hallucinations, visual hallucinations. Patient has a long history of paranoid thoughts, much relieved at this time. He states that he has had suicidal thoughts "all my life." Denies suicidal thoughts at this time. Speech is well articulated, goal-directed, average in rate, volume and tone. Cooperative, logical. Alert and oriented 3. The patient understands the risks/benefits/side effects of the medication and is agreeable to continue taking them. PLAN: Increase Zyprexa to 10 mg at bedtime. 5 mg in the morning. Patient states that he feels safe and ready to leave the hospital tomorrow. [facility] intake tomorrow at 12:45. Continue with current management as patient is improving. Continue to provide support and encouragement.
[2016-10-27 15:58] VITALS: BP 137/87
[2016-10-27 19:34] VITALS: BP 140/78
--- NOTE | 2016-10-27 21:24 | NUR ---
PT IS COOPERATIVE WITH STAFF AND COMPLAINT WITH UNIT RULES. PT IS OUT IN THE COMMUNITY INTERACTING WELL WITH STAFF AND PEERS. PT IS ACTIVE IS MOST GROUPS. PT MOOD IS STABLE WITH A CONSTRICTED AFFECT. PT REPORTS FEELINGS OF ANXIETY THIS SHIFT OVER DISCHARGE PLANNING. PT DENIES SI THOUGHTS.
[2016-10-28 07:39] VITALS: BP 135/84
--- NOTE | 2016-10-28 07:49 | CP SOUTH PROGRESS NOTE PSYCH ---
Psych (Inpt) Progress Note Progress Note Progress Note I discussed this patient's progress to date, current mental status, treatment process in the context of the treatment plan, and discharge planning with staff/ team in the daily morning inpatient team meeting. I also met with the patient myself in individual session. SUBJECTIVE: "I feel really good. I think this is how normal people feel." OBJECTIVE: Current Medications Sig/Uday Start time Last Medication Dose Route Stop Time Status Admin Alprazolam 0.5 MG TID PRN 10/23 1100 AC 10/27 PO 10/30 1059 1334 Atenolol 50 MG DAILY 10/23 1053 AC 10/27 PO 0758 Buspirone HCl 30 MG TID 10/23 1054 AC 10/27 PO 2204 Fluvoxamine Maleate 100 MG 0 10/26 2200 AC 10/27 PO 2203 Fluvoxamine Maleate 100 MG 10/25 0800 AC 10/27 PO 0757 Lamotrigine 100 MG TID 10/23 1054 AC 10/27 PO 2203 Olanzapine 5 MG 10/28 0800 AC PO Olanzapine 10 MG AT BEDTIME 10/27 2200 AC 10/27 PO 2203 Olanzapine 2.5 MG ONCE ONE 10/27 1545 DC 10/27 PO 10/27 1546 1648 Olanzapine 5 MG 0800,10/26 2200 DC 10/27 PO 0758 Paroxetine HCl 60 MG 10/25 0800 AC 10/27 PO 0758 Primidone 50 MG TID 10/23 1055 AC 10/27 PO 2203 Thyroid 1 GR DAILY AC 10/28 0700 AC 10/28 PO 0650 Thyroid 1 GR DAILY 10/23 1000 DC 10/27 PO 0757 Vital Signs Date Time Temp Pulse Resp B/P Pulse O2 O2 Flow FiO2 Ox Delivery Rate 10/28 0739 96.9 73 135/84 10/27 1934 97.4 95 140/78 10/27 1558 85 137/87 10/27 1212 67 149/99 10/27 0759 97.0 85 146/99 ASSESSMENT: Patient reports that he is doing very well after increase of Zyprexa to 10 mg at bedtime, 5 mg in the morning and 2.5 mg in the middle of the day. He reports significant alleviation of his depression, anxiety and distress. States that he feels safe and ready for discharge. Is looking forward to [facility]. We again discussed that the patient is currently taking 2 SSRI antidepressants, and that our plan is to continue tapering him down and off of the Paxil. Although he is not happy about this, I have asked that he consider this with an open mind while he is at IOP. The patient acknowledges that he is now feeling better, and will speak to his IOP provider. Depression:3/10; Anxiety:2/10 (with 10 the worst.) Denies homicidal ideation, auditory hallucinations, visual hallucinations, paranoid ideation. Patient reports intermittent but chronic passive suicidal ideation, with no plan or intent to harm himself. Speech is well articulated, goal-directed, average in rate, volume and tone. Cooperative, pleasant. Alert and oriented 3. Anxious affect. The patient understands the risks/benefits/side effects of the medication and is agreeable to continue taking them. PLAN: Anticipate discharge today to IOP intake. Continue with current management as patient is improving. Continue to provide support and encouragement.
--- NOTE | 2016-10-28 07:51 | DISCHARGE SUMMARY REPORT-PSYCH ---
Visit Information Visit Dates/Diagnosis' Admission Date: 10/23/16 Discharge Date: 10/28/16 Reason for Admission: Patient is a 50-year old male with a history of anxiety, OCD, and depression. Patient expressed increased suicidal thoughts in the context of recent medication changes in Paxil, Buspar and Luvox. Patient also expressed obsessive concerns about losing his 100% disability from the [employer]. Patient was admitted in March 2016 in [place] for a suicidal attempt. Psy Discharge Primary Diag: Unspecified anxiety disorder. Psy Discharge Secondary Diag: OCD; unspecified depressive d/o; Rule out bipolar disorder; hypertension; hypothyroidism. Hospital Course Significant Lab Findings: Lab BUN 16 mg/dL 10/25/16 0626 Creatinine 1.3 mg/dL H 10/25/16 0626 Estimated GFR 59 ml/min L 10/25/16 0626 Free T4 1.23 ng/dL 10/22/16 1728 TSH 1.140 uIU/mL 10/22/16 1728 Thyroxine (T4) 6.9 ug/dL 10/22/16 1728 Course Complications: None Consultations: Patient was seen for admission history and physical by Dr. Merino. Please refer to the H&P for additional information. Allergies: Coded Allergies: No Known Allergies (10/22/16) Hospital Course/[place] Response: The patient was monitored on the unit for safety, exacerbations of anxiety, depression, and suicidal ideation. He participated in multimodal treatments on the unit. He was medicated with olanzapine for clear thoughts and unrelenting severe anxiety. His doses of paroxetine and fluvoxamine were titrated down, with the intention of discontinuing one of the SSRIs while he is in treatment at the intensive outpatient program. The patient expressed his anxiety at discontinuing one of the antidepressants. It was explained to him that taking two SSRIs could result in unwanted side effects, including serotonin syndrome, and our recommendation is that the dose of his antidepressant should remain within prescribing guidelines, and he take only one SSRI antidepressant. In addition his outpatient psychiatric medications of BuSpar for anxiety, Lamictal for mood stability, alprazolam for anxiety were continued. Today, the day of discharge, patient states, "I feel really good. I think this is how normal people feel." Patient reports that he is doing very well after increase of Zyprexa to 10 mg at bedtime, 5 mg in the morning and 2.5 mg in the middle of the day. He reports significant alleviation of his depression, anxiety and distress. States that he feels safe and ready for discharge. Is looking forward to [facility]. We again discussed that the patient is currently taking 2 SSRI antidepressants, and that our plan is to continue tapering him down and off of the Paxil. Although he is not happy about this, I have asked that he consider this with an open mind while he is at IOP. The patient acknowledges that he is now feeling better, and will speak to his IOP provider. Depression:3/10; Anxiety:2/10 (with 10 the worst.) Denies homicidal ideation, auditory hallucinations, visual hallucinations, paranoid ideation. Patient reports intermittent but chronic passive suicidal ideation, with no plan or intent to harm himself. Speech is well articulated, goal-directed, average in rate, volume and tone. Cooperative, pleasant. Alert and oriented 3. Anxious affect. The patient understands the risks/benefits/side effects of the medication and is agreeable to continue taking them. Patient reports tolerating his medications well, without complaint. States he feels safe and ready for discharge. Discharge HBIPS - Tobacco Use Treatment Offered Post DC Medications Offered: NA-No Tob Use >30 days Post DC Tobacco Treatment Plan: NA-No Tobacco use >30days - EtOH/Drug Use D/O Treatment Offered Post DC Medications Offered: Ref Med EtOH/Drug Use D/O Post DC EtOH/SubAbuse [place] Plan: [facility] SubAbuse/Dual IOP Program Appt Date: 10/28/16 Program Appt Time: 1245 Metabolic Screening - Screen if on a Neuroleptic Medication - Metabolic screening should include: - Blood Pressure, BMI, Glucose or Hgb A1c, & a - Lipid profile from within the past 365 days. Metabolic Screening () Not Applicable, patient not on a neuroleptic. OR ([x]) Patient on a neuroleptic(s) . Enter below results for Glucose or Hemoglobin A1C, and lipid panel if obtained during the last 365 days. BMI: 28.600 Blood Pressure: 135/84 Laboratory Results (If applicable): Lab Cholesterol 176 MG/DL 10/25/16 0626 Cholesterol/HDL Ratio 3 % 10/25/16 0626 HDL Cholesterol 51 mg/dL 10/25/16 0626 LDL Cholesterol, Calc 107 mg/dL 10/25/16 0626 Triglycerides 93 mg/dL 10/25/16 0626 Lab Glucose 77 mg/dL 10/22/16 1728 Discharge Instructions General Discharge Information Discharge Medications: Discharge Medications- (Dose, route, freq, indication): START taking these NEW Home Medications: Olanzapine Dose: ORAL, DAILY @8 AM for Qty: 14 Called in to (Olanzapine) 5 MG 5 Milligram CLEAR THOUGHTS Refills: 0 Pharm 1 TABLET Last Taken:10/28/16 Time:08:29 Olanzapine Dose: ORAL, AT BEDTIME for Qty: 14 Called in to (Olanzapine) 10 MG 10 Milligram CLEAR THOUGHTS Refills: 0 Pharm 1 TABLET Last Taken:10/27/16 Time:22:03 Olanzapine (Zyprexa) Dose: ORAL, DAILY for CLEAR Qty: 14 Called in to 2.5 MG TABLET 2.5 Milligram THOUGHTS Refills: 0 Pharm 1 CONTINUE taking these Home Medications: Paroxetine HCl Dose: ORAL, THREE TIMES DAILY (Paroxetine HCl) 40 MG 1 Tablet for MENTAL HEALTH TABLET Medication dosage starts tomorrow 10/29/16 Fluvoxamine Maleate Dose: ORAL, TWICE DAILY for (Fluvoxamine Maleate) 2 Tablet MENTAL HEALTH 100 MG TABLET Last Taken:10/28/16 Time:08:29 Buspirone HCl (Buspirone Dose: ORAL, THREE TIMES DAILY HCl) 30 MG TABLET 1 Tablet for MENTAL HEALTH Last Taken:10/28/16 Time:08:29 Primidone (Primidone) 50 Dose: ORAL, THREE TIMES DAILY MG TABLET 1 Tablet for MENTAL HEALTH Last Taken:10/18/16 Time:08:28 Lamotrigine Dose: ORAL, THREE TIMES DAILY (Lamotrigine) 100 MG 1 Tablet for MENTAL HEALTH TABLET Last Taken:10/28/16 Time:08:29 Alprazolam (Alprazolam) Dose: ORAL, Q4-6H as needed 0.5 MG TABLET 1 Tablet for ANXIETY Thyroid,Pork ([place] Dose: ORAL, DAILY for THYROID Thyroid) 60 MG TABLET 1 Tablet Last Taken:10/28/16 Time:06:50 Atenolol (Atenolol) 50 Dose: ORAL, DAILY for HEART/BP MG TABLET 1 Tablet Last Taken:10/28/16 Time:08:29 STOP taking these DISCONTINUED Home Medications: Rivaroxaban (Xarelto) 15 MG Dose: ORAL, TWICE DAILY for BLOOD TABLET 1 Tablet THINNER Reason Stopped: Per Doctor Decision 1: [facility], [address] [place] [address] Your Preferred Pharmacy [facility] [address] [place] [address] Multiple Neuroleptics: (x) Not Applicable OR Document below three failed attempts at monotherapy, or a plan to taper to monotherapy, or augmentation of Clozapine. () Patient's Diet: Regular Patient's Activity: No restrictions DC Disposition: Patient is returning to his home. Recommendations: Do not drink alcohol while taking these medications. Follow-up at [facility]. Take medications as directed. Referred To: [facility] intensive outpatient program. [facility] [place] Intake appointment immediately after discharge, 07/30/2017 at 12:45 PM. Copies To: Intensive Outpt Psychiatry
[2016-10-28] MEDS ORDERED: ZYPREXA2.5 M1 PO (08:08)
--- NOTE | 2016-10-28 08:59 | SOCIAL WORKER PROG NOTE PSYCH ---
Social Work Progress Note Progress Note Patient to discharge the hospital today. Patient appears less anxious today and reports feeling ready to return home. Patient denies SI/HI/AH/VH at present. Patient reports some hesitancy about attending IOP but at this time is willing to attend intake and try program. Patient has intake today at [facility] at 12:45pm. Patient plans to stay between his friend Dotty's house and his parents house. Patient is able to contract for safety today and has agreed that if he starts to have unsafe thoughts or feelings he will present to local ED. Patient is aware that his new prescriber will be IOP and he will refrain temporarily from med management from his previous provider in [facility].
--- NOTE | 2016-10-28 10:51 | NUR ---
Patient is compliant and cooperative with medication and group therapies, report good night sleep and appetite. mood is stable with appropriate affect. Pt demonstrate and verbalizes better understanding of his mental illness and verbalizes/demonstrates some copping skills that will help him stay focus and self reliant as to maintain independent lifestyle. Pt is being discharged today and will be attending [facility]ensive Out[facility] Program as is discharge plan and aftercare care. Pt consitently denies thought of self-harm and to someone else.
[2016-10-28] MEDS ORDERED: OLANZAPINE10 M1 PO (11:55)
[2016-10-28] MEDS ORDERED: OLANZAPINE5 M2 PO (11:55)
== END 2016-10-28 14:29 | DRG 880 ==
LOC: ERH 17:01 → CP SOUTH 10-23 14:24 → ERHI 10-23 14:24 → CP SOUTH 10-23 16:50
PROVIDERS: Physician Assistant Medical; Registered Nurse Psychiatric/Mental Health; ADMIT Psychiatry & Neurology Addiction Medicine
DX: F41.9 Anxiety disorder, unspecified (principal); I10 Essential (primary) hypertension; F42.9 Obsessive-compulsive disorder, unspecified; F32.9 Major depressive disorder, single episode, unspecified; E03.9 Hypothyroidism, unspecified
CPT/HCPCS: 36415; 80307; 93005; 93010; G0463; G0480; J3490